=== PATIENT | female | born 1945 | race Caucasian/White ===

== ENCOUNTER → 2017-11-16 11:26 | Outpatient (CLI) | payer MEDICARE, OTHER, SELFPAY ==
[2017-11-16 12:01] LABS: Add Manual Diff / Slide Review NO; Basophils Percent Auto 0.7 % (0-2); Eosinophils Percent Auto 0.8 % (2-4); Hematocrit 34.8 % (36-46); Hemoglobin 11.9 g/dL (12.0-16.0); Lymphocytes Percent Auto 31.2 % (25-40); Mean Corpuscular HGB Conc 34.2 % (30-36); Mean Corpuscular Hemoglobin 29.5 PG (26-34); Mean Corpuscular Volume 86.3 fL (80-100); Monocytes Percent Auto 4.9 % (3-14); Neutrophils Absolute Auto 3900 /uL (3000-5900); Neutrophils Percent Auto 62.4 % (50-75); Platelet Count 223 X10^3/uL (150-400); Red Blood Cell Count 4.03 X10^6/uL (4.0-5.2); Red Cell Distribution Width 13.7 % (11.6-14.8); White Blood Cell Count 6.3 X10^3/uL (4.5-11.0)
[2017-11-16 12:44] LABS: Albumin 4.4 g/dL (3.5-5.0); BUN Creatinine Ratio 22.3 (6-22); Blood Urea Nitrogen 29 mg/dL (7-17); Calcium 10.1 mg/dL (8.4-10.2); Carbon Dioxide 24 mmol/L (22-32); Chloride 103 mmol/L (98-107); Estimated Glomerular Filt Rate 40.4 mL/min (>60); Glucose 92 mg/dL (80-110); HEMOLYSIS < 15 (0-50); Phosphorous 3.3 mg/dL (2.8-4.1); Potassium 4.3 mmol/L (3.4-5.1); Sodium 139 mmol/L (137-145); Uric Acid 7.2 mg/dL (2.5-6.2)
[2017-11-17 16:31] LABS: Complement C3 97 mg/dL (83-193)
[2017-11-19 03:41] LABS: ANA Screen NEGATIVE (Negative); DNA Antibody Crithidia IFA NEGATIVE (Negative); Rheumatoid Factor <14 IU/mL; Sjogren Antiboday SS-A <1.0 NEG AI (<1.0 NEGATIVE); Sjogren Antiboday SS-B <1.0 NEG AI (<1.0 NEGATIVE); Sm Antibody <1.0 NEG AI (<1.0 NEGATIVE); Sm/RNP Antibody <1.0 NEG AI (<1.0 NEGATIVE)
[2017-11-19 14:56] LABS: ANCA Screen with reflex Titer NEGATIVE (Negative)
== END ==
PROVIDERS: PCP Internal Medicine; Visit Provider Internal Medicine Nephrology
DX: N18.9 Chronic kidney disease, unspecified (principal)
CPT/HCPCS: 36415; 80069; 84550; 85025; 86021; 86038; 86160; 86430

== ENCOUNTER → 2018-01-03 09:18 | Outpatient (CLI) | payer MEDICARE, OTHER, SELFPAY ==
[2018-01-03 10:43] LABS: Alanine Aminotransferase 24 IU/L (9-52); Aspartate Aminotransferase 30 IU/L (14-36); Cholesterol 156 mg/dL (140-199); HDL Cholesterol 43 mg/dL (40-60); LDL Cholesterol Calculated 90 mg/dL (<100); Triglycerides 116 mg/dL (35-150)
[2018-01-03 11:10] LABS: TSH w/ Reflex to FT4 0.04 uIU/mL (0.47-4.68)
== END ==
PROVIDERS: PCP Internal Medicine; Visit Provider Internal Medicine
DX: E03.9 Hypothyroidism, unspecified (principal)
CPT/HCPCS: 36415; 80061; 84439; 84443; 84450; 84460

== ENCOUNTER → 2018-02-22 09:13 | Outpatient (CLI) | payer MEDICARE, OTHER, SELFPAY ==
--- NOTE | 2018-02-22 | DI.MG.S_ITS ---
BILATERAL DIGITAL SCREENING MAMMOGRAM 3D/2D WITH CAD: 02/22/2018 CLINICAL: Routine screening. Comparison is made to exams dated: 02/21/2017 mammogram, 02/19/2016 mammogram, and 02/12/2015 mammogram - [facility]. There are scattered fibroglandular elements in both breasts. Current study was also evaluated with a Computer Aided Detection (CAD) system. No significant masses, calcifications, or other findings are seen in either breast. There has been no significant interval change. IMPRESSION: NEGATIVE There is no mammographic evidence of malignancy. A 1 year screening mammogram is recommended.(02/23/2019) This exam was interpreted at Station ID: [id number]. NOTE: For mammograms, a report in lay terms will be sent to the patient. Approximately 15% of breast malignancies will not be visualized mammographically. In the management of a palpable breast mass, a negative mammogram must not discourage biopsy of a clinically suspicious lesion. Electronically Signed By: Brandon meraz/miryam:02/23/2018 05:08:56 letter sent: Normal Exam ACR BI-RADS Category 1: Negative 3341F
== END ==
PROVIDERS: PCP Internal Medicine; Visit Provider Internal Medicine
DX: Z12.31 Encounter for screening mammogram for malignant neoplasm of breast (principal); M81.0 Age-related osteoporosis without current pathological fracture; Z78.0 Asymptomatic menopausal state; E07.9 Disorder of thyroid, unspecified
CPT/HCPCS: 77063; 77067; 77080

== ENCOUNTER → 2018-04-27 08:07 | Outpatient (CLI) | payer MEDICARE, OTHER, SELFPAY | PROVIDERS: PCP Internal Medicine; Visit Provider Internal Medicine Nephrology | DX: R25.2 Cramp and spasm (principal); N18.3 Chronic kidney disease, stage 3 (moderate) ==

== ENCOUNTER → 2018-04-27 08:11 | Outpatient (CLI) | payer MEDICARE, OTHER, SELFPAY ==
[2018-04-27 10:44] LABS: Albumin 4.3 g/dL (3.5-5.0); BUN Creatinine Ratio 18.3 (6-22); Blood Urea Nitrogen 22 mg/dL (7-17); Calcium 9.1 mg/dL (8.4-10.2); Carbon Dioxide 26 mmol/L (22-32); Chloride 105 mmol/L (98-107); Creatine Kinase 110 U/L (30-135); Estimated Glomerular Filt Rate 44.2 mL/min (>60); Glucose 86 mg/dL (80-110); HEMOLYSIS < 15 (0-50); Magnesium 2.3 mg/dL (1.6-2.3); Phosphorous 3.3 mg/dL (2.8-4.1); Sodium 140 mmol/L (137-145)
[2018-04-27 11:13] LABS: Thyroid Stimulating Hormone 2.14 uIU/mL (0.47-4.68)
[2018-04-27 11:22] LABS: Free T4, Direct Thyroxine 1.39 ng/dL (0.78-2.19)
== END ==
PROVIDERS: PCP Internal Medicine; Visit Provider Internal Medicine
DX: E03.9 Hypothyroidism, unspecified (principal); R25.2 Cramp and spasm
CPT/HCPCS: 36415; 80069; 82550; 83735; 84439; 84443

== ENCOUNTER 2018-07-29 11:29 | Emergency (ER) | payer MEDICARE, OTHER, SELFPAY ==
[2018-07-29 11:32] VITALS: BP 142/70; PULSE 74; RESP 12; TEMP 36.5; O2SAT 100
--- NOTE | 2018-07-29 11:38 | ED.ABDPAIN ---
HPI - Abdominal Pain General Chief Complaint: Abdominal Pain Stated Complaint: DIVERTICULITIS Time Seen by Provider: 07/29/18 11:37 Source: patient Mode of arrival: ambulatory Limitations: no limitations History of Present Illness HPI narrative: The patient developed left lower quadrant abdominal pain yesterday evening. She had loose bowel movements last night. She has had no fever or chills. She has no upper abdominal discomfort or emesis. She has no lower GI bleeding. She has a history of diverticulitis, her 1st about 2 years ago. She has undergone routine colonoscopies. She also has renal insufficiency. She has no current hematuria or dysuria. She is drinking fluids and has normal urine output. Related Data Home Medications Medication Instructions Recorded Confirmed CHOLECALCIFEROL (VITAMIN D3) 10,000 units PO #0 12/01/12 02/21/18 (MAXIMUM D3) [COQ 10] #0 06/16/16 02/21/18 ranitidine HCl 75 mg PO BID #0 06/16/16 02/21/18 atorvastatin [Lipitor] 40 mg PO HS #0 05/31/17 02/21/18 clonazepam 2 mg PO #0 05/31/17 02/21/18 levothyroxine [Tirosint] 88 mcg PO #0 05/31/17 02/21/18 Previous Rx's Medication Instructions Recorded amoxicillin-pot clavulanate 1 tab PO BID #14 tab 07/29/18 [Augmentin] Allergies Allergy/AdvReac Type Severity Reaction Status Date / Time cefaclor Allergy Mild RASH Verified 07/29/18 11:35 tetracycline Allergy Mild RASH Verified 07/29/18 11:35 ciprofloxacin [From CIPRO] Allergy Unknown nerve pain Verified 07/29/18 11:35 levofloxacin AdvReac Intermediate NERVE PAIN Verified 07/29/18 11:35 Review of Systems Review of Systems ROS Unobtainable: All systems reviewed & are unremarkable except as noted in HPI and below Constitutional Denies chills, Denies fever(s), Denies headache(s) and Denies weakness ENT Ears, Nose, Mouth, and Throat: Denies headache(s) Cardiovascular Denies chest pain, Denies edema, Denies dyspnea and Denies orthopnea Respiratory Denies cough, Denies dyspnea and Denies wheezing Gastrointestinal Gastrointestinal: Denies abdominal pain, Reports change in bowel habits, Reports diarrhea, Denies nausea and Denies vomiting Genitourinary Denies dysuria Musculoskeletal Denies back pain and Reports numbness Integumentary/Breasts Denies erythema and Denies rash Neurologic Denies headache(s), Reports numbness and Denies weakness Allergic/Immunologic Denies wheezing PFSH Medical History Chronic kidney disease (Acute) Diverticulitis (Acute) Hyperlipidemia (Acute) Surgical History S/P colonoscopy (Acute) Social History Smoking Status: Never smoker Social History Smoking Status: Never smoker Exam Initial Vital Signs Initial Vital Signs: Vital Signs Temperature 97.7 F 07/29/18 11:32 Pulse Rate 74 07/29/18 11:32 Respiratory Rate 12 07/29/18 11:32 Blood Pressure 142/70 H 07/29/18 11:32 Pulse Oximetry 100 07/29/18 11:32 Const General: cooperative and well developed Nutritional Appearance: well nourished Orientation: alert, awake and oriented x3 HENMT Head: normocephalic and atraumatic Mouth: oral mucosae normal and moist mucous membranes Throat: posterior oropharynx normal, tonsils normal and uvula midline Eyes Sclera: sclerae normal (No icterus) Resp Effort & Inspection: normal respiratory effort, able to speak in complete sentences, no respiratory distress and no use of accessory muscles Auscultation: clear to auscultation bilaterally, no rales, no rhonchi and no wheezes Cardio Rate: regular rate Rhythm: regular rhythm Heart Sounds: no click, no gallops, no murmurs and no rubs Pulses: normal peripheral pulses GI Inspection: non-distended Palpation: soft, no hepatosplenomegaly and tender (Mild left lower quadrant tenderness without guarding or rebound.) Auscultation: normal bowel sounds Back/Spine/Pelvis Back: No CVA tenderness Skin General: no rashes or lesions noted and No jaundice Neuro General: alert, oriented x3, gait normal and no focal motor deficits Speech: speech normal Extrem General: no pedal edema Psych Appearance: grossly normal and well kempt Mental Status: mental status grossly normal Attitude: cooperative Thought Content: normal and suicidality Judgment: judgment good Course Orders Ordered: ED Orders 07/29/18 11:46 Basic Metabolic Panel Stat Complete Blood Count AUTO DIFF Stat 07/29/18 12:02 Urine Culture Stat Urine Microscopic Stat Discontinued Medications Amoxicillin/Clavulanate Potassium (Augmentin 875-125 Mg) 1 tab PO NOW ONE Stop: 07/29/18 13:30 Last Admin: 07/29/18 13:37 Dose: 1 tab Vital Signs - 8 hr 07/29/18 11:32 07/29/18 12:36 07/29/18 14:09 Temperature 97.7 F Pulse Rate 74 60 59 L Respiratory Rate 12 16 18 Blood Pressure 142/70 H 123/64 Blood Pressure [Left Arm] 120/59 L Pulse Oximetry 100 100 100 MDM - Abdominal Pain Lab Data Result diagrams: 07/29/18 11:46 07/29/18 11:46 Lab Results 07/29/18 07/29/18 07/29/18 Range/Units 11:46 11:46 12:02 WBC 11.2 H (4.5-11.0) X10^3/uL RBC 4.30 (4.0-5.2) X10^6/uL Hgb 12.6 (12.0-16.0) g/dL Hct 38.0 (36-46) % MCV 88.2 (80-100) fL MCH 29.2 (26-34) PG MCHC 33.1 (30-36) % RDW 14.0 (11.6-14.8) % Plt Count 252 (150-400) X10^3/uL Neut % (Auto) 77.7 H (50-75) % Lymph % (Auto) 17.3 L (25-40) % [place] % (Auto) 4.4 (3-14) % Eos % (Auto) 0.2 L (2-4) % Baso % (Auto) 0.4 (0-2) % Neut # (Auto) 8700 H (8519-3290) /uL Lymph # (Auto) 1900 (1544-6744) /uL [place] # (Auto) 500 (0-900) /uL Eos # (Auto) 0 (0-450) /uL Baso # (Auto) 100 (0-100) /uL Sodium 136 L (137-145) mmol/L Potassium 4.2 (3.4-5.1) mmol/L Chloride 102 (98-107) mmol/L Carbon Dioxide 25 (22-32) mmol/L BUN 21 H (7-17) mg/dL Creatinine 1.30 H (0.52-1.04) mg/dL Estimated GFR 40.3 L (>60) mL/min BUN/Creatinine Ratio 16.2 (6-22) Glucose 98 (80-110) mg/dL Calcium 9.4 (8.4-10.2) mg/dL Urine RBC 5-10/hpf H (0-5/HPF) Urine WBC 1-5/hpf (0-5/HPF) Urine Bacteria None seen (None) Ur Culture Indicated? Specimen cultured Point of care testing: Urine Dip Bedside Urine Glucose Negative Bedside Urine Bilirubin + 1 Bedside Urine Ketone +/- 5 Urine Specific [place] 1.020 Bedside Urine Occult Blood + Bedside Urine pH 5.5 Bedside Urine Urobilinogen +/- 1mg Bedside Urine Nitrite - Negative Bedside Urine Leukocytes +/- 15 Esterase Discharge Plan Departure Patient Disposition: Home Clinical Impression: Abdominal pain Qualifiers: Abdominal location: left lower quadrant Qualified Code(s): R10.32 - Left lower quadrant pain Discharge Date/Time: 07/29/18 14:13 Interventions: ED Discharge Assessment Last Done: 07/29/18 14:09 Instructions: Diverticulitis Activity Restrictions/Additional Instructions: Augmentin 2 times daily as prescribed. Tylenol 2 tablets every 4 hours as needed for pain. Be sure you're drinking plenty of fluids and stay well hydrated. Return the ER for increasing pain or fever. Recheck with your doctor in 2 weeks of doing well. Prescriptions: New amoxicillin-pot clavulanate [Augmentin] 875-125 mg tablet 1 tab PO BID Qty: 14 RF: 0 No Action CHOLECALCIFEROL (VITAMIN D3) (MAXIMUM D3) 10,000 units PO Qty: 0 RF: 0 ranitidine HCl 75 MG tablet 75 mg PO BID Qty: 0 RF: 0 [COQ 10] Qty: 0 RF: 0 levothyroxine [Tirosint] 88 MCG capsule 88 mcg PO Qty: 0 RF: 0 atorvastatin [Lipitor] 20 MG tablet 40 mg PO HS Qty: 0 RF: 0 clonazepam 2 MG tablet 2 mg PO Qty: 0 RF: 0 Referrals: Hellen Kohler MD [Primary Care Provider] -
[2018-07-29 11:54] LABS: Add Manual Diff / Slide Review NO; Basophils Absolute Auto 100 /uL (0-100); Basophils Percent Auto 0.4 % (0-2); Eosinophils Absolute Auto 0 /uL (0-450); Eosinophils Percent Auto 0.2 % (2-4); Hemoglobin 12.6 g/dL (12.0-16.0); Lymphocytes Absolute Auto 1900 /uL (1100-4500); Lymphocytes Percent Auto 17.3 % (25-40); Mean Corpuscular HGB Conc 33.1 % (30-36); Mean Corpuscular Hemoglobin 29.2 PG (26-34); Mean Corpuscular Volume 88.2 fL (80-100); Monocytes Absolute Auto 500 /uL (0-900); Monocytes Percent Auto 4.4 % (3-14); Neutrophils Absolute Auto 8700 /uL (1500-7000); Neutrophils Percent Auto 77.7 % (50-75); Platelet Count 252 X10^3/uL (150-400); White Blood Cell Count 11.2 X10^3/uL (4.5-11.0)
[2018-07-29 12:05] LABS: BUN Creatinine Ratio 16.2 (6-22); Blood Urea Nitrogen 21 mg/dL (7-17); Calcium 9.4 mg/dL (8.4-10.2); Carbon Dioxide 25 mmol/L (22-32); Chloride 102 mmol/L (98-107); Estimated Glomerular Filt Rate 40.3 mL/min (>60); Glucose 98 mg/dL (80-110); HEMOLYSIS < 15 (0-50); Potassium 4.2 mmol/L (3.4-5.1); Sodium 136 mmol/L (137-145)
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
[2018-07-29 12:36] VITALS: BP 120/59; PULSE 60; RESP 16; O2SAT 100
[2018-07-29 12:52] LABS: Bacteria Urine None Seen; RBC Urine 5-10/HPF (0-5/HPF); WBC Urine 1-5/HPF (0-5/HPF)
[2018-07-29 12:53] LABS: Culture Indicated Urine Specimen Cultured
[2018-07-29] MEDS: AMOXICILLIN/CLAV 875/125 MG 1 TAB PO (13:37)
--- NOTE | 2018-07-29 14:00 | ED_ITS ---
HPI - Abdominal Pain General Chief Complaint: Abdominal Pain Stated Complaint: DIVERTICULITIS Time Seen by Provider: 07/29/18 11:37 Source: patient Mode of arrival: ambulatory Limitations: no limitations History of Present Illness HPI narrative: The patient presents with left lower quadrant abdominal pain. Pain started last night. She has had loose bowel movements without bloody diarrhea. She has had no emesis. She denies fever or chills. She denies dysuria. She has no back pain. She has a history of diverticulitis. Her last episode of diverticulitis was about 2 years ago. Pains are similar, not yet as severe as she has experienced in the past. She is concerned she has diverticulitis once again. She does not have LLQ tenderness on a daily basis. Related Data Home Medications Medication Instructions Recorded Confirmed CHOLECALCIFEROL (VITAMIN D3) 10,000 units PO #0 12/01/12 02/21/18 (MAXIMUM D3) [COQ 10] #0 06/16/16 02/21/18 ranitidine HCl 75 mg PO BID #0 06/16/16 02/21/18 atorvastatin [Lipitor] 40 mg PO HS #0 05/31/17 02/21/18 clonazepam 2 mg PO #0 05/31/17 02/21/18 levothyroxine [Tirosint] 88 mcg PO #0 05/31/17 02/21/18 Previous Rx's Medication Instructions Recorded amoxicillin-pot clavulanate 1 tab PO BID #14 tab 07/29/18 [Augmentin] Allergies Allergy/AdvReac Type Severity Reaction Status Date / Time cefaclor Allergy Mild RASH Verified 07/29/18 11:35 tetracycline Allergy Mild RASH Verified 07/29/18 11:35 ciprofloxacin [From CIPRO] Allergy Unknown nerve pain Verified 07/29/18 11:35 levofloxacin AdvReac Intermediate NERVE PAIN Verified 07/29/18 11:35 Review of Systems Review of Systems ROS Unobtainable: All systems reviewed & are unremarkable except as noted in HPI and below Constitutional Denies headache(s) and Denies weakness Eyes Reports other (No eye complaints) ENT Ears, Nose, Mouth, and Throat: Denies headache(s) and Denies sore throat Cardiovascular Denies chest pain, Denies irregular heart rhythm, Denies lightheadedness, Denies palpitations, Denies dyspnea and Denies orthopnea Respiratory Denies cough and Denies dyspnea Gastrointestinal Gastrointestinal: Reports abdominal pain (Left lower quadrant abdominal pain), Denies change in bowel habits, Denies diarrhea, Denies nausea and Denies vom iting Genitourinary Denies dysuria Musculoskeletal Denies back pain and Reports numbness Integumentary/Breasts Denies pruritus, Denies erythema, Denies rash and Denies wounds Neurologic Denies headache(s), Reports numbness and Denies weakness Endocrine Denies palpitations Hematologic/Lymphatic Denies easy bleeding and Denies easy bruising PFSH Medical History Chronic kidney disease (Acute) Diverticulitis (Acute) Hyperlipidemia (Acute) Surgical History S/P colonoscopy (Acute) Social History Smoking Status: Never smoker Social History Smoking Status: Never smoker Exam Initial Vital Signs Initial Vital Signs: Vital Signs Temperature 97.7 F 07/29/18 11:32 Pulse Rate 74 07/29/18 11:32 Respiratory Rate 12 07/29/18 11:32 Blood Pressure 142/70 H 07/29/18 11:32 Pulse Oximetry 100 07/29/18 11:32 Const General: cooperative and well developed Nutritional Appearance: well nourished Orientation: alert, awake, oriented x3 and not confused Eyes Sclera: sclerae normal (No icterus) Chest Chest: normal inspection of the chest Resp Effort & Inspection: normal respiratory effort and able to speak in complete sentences Auscultation: clear to auscultation bilaterally, no rales, no rhonchi and no wheezes Cardio Rate: regular rate Rhythm: regular rhythm Heart Sounds: no click, no gallops, no murmurs and no rubs Pulses: normal peripheral pulses GI Inspection: non-distended Palpation: soft, no hepatosplenomegaly, No pulsatile mass and tender (LLQ tenderness without distention, guarding or rebound) Auscultation: normal bowel sounds Back/Spine/Pelvis Back: No CVA tenderness Skin General: no rashes or lesions noted, No jaundice and No petechiae Neuro General: alert, oriented x3, gait normal and no focal motor deficits Course Course Narrative: The patient truly has normal bowel habits, and no lower abdominal tenderness. She has no urinary complaints. Current symptoms are suggestive of prior bouts of diverticulitis. She has allergies to Cipro and Levaquin. She will be discharged on Augmentin. Orders Ordered: ED Orders 07/29/18 11:46 Basic Metabolic Panel Stat Complete Blood Count AUTO DIFF Stat 07/29/18 12:02 Urine Culture Stat Urine Microscopic Stat Discontinued Medications Amoxicillin/Clavulanate Potassium (Augmentin 875-125 Mg) 1 tab PO NOW ONE Stop: 07/29/18 13:30 Last Admin: 07/29/18 13:37 Dose: 1 tab Vital Signs - 8 hr 07/29/18 11:32 07/29/18 12:36 Temperature 97.7 F Pulse Rate 74 60 Respiratory Rate 12 16 Blood Pressure 142/70 H Blood Pressure [Left Arm] 120/59 L Pulse Oximetry 100 100 MDM - Abdominal Pain Lab Data Result diagrams: 07/29/18 11:46 07/29/18 11:46 Lab Results 07/29/18 07/29/18 07/29/18 Range/Units 11:46 11:46 12:02 WBC 11.2 H (4.5-11.0) X10^3/uL RBC 4.30 (4.0-5.2) X10^6/uL Hgb 12.6 (12.0-16.0) g/dL Hct 38.0 (36-46) % MCV 88.2 (80-100) fL MCH 29.2 (26-34) PG MCHC 33.1 (30-36) % RDW 14.0 (11.6-14.8) % Plt Count 252 (150-400) X10^3/uL Neut % (Auto) 77.7 H (50-75) % Lymph % (Auto) 17.3 L (25-40) % [place] % (Auto) 4.4 (3-14) % Eos % (Auto) 0.2 L (2-4) % Baso % (Auto) 0.4 (0-2) % Neut # (Auto) 8700 H (5422-4742) /uL Lymph # (Auto) 1900 (1550-2078) /uL [place] # (Auto) 500 (0-900) /uL Eos # (Auto) 0 (0-450) /uL Baso # (Auto) 100 (0-100) /uL Sodium 136 L (137-145) mmol/L Potassium 4.2 (3.4-5.1) mmol/L Chloride 102 (98-107) mmol/L Carbon Dioxide 25 (22-32) mmol/L BUN 21 H (7-17) mg/dL Creatinine 1.30 H (0.52-1.04) mg/dL Estimated GFR 40.3 L (>60) mL/min BUN/Creatinine Ratio 16.2 (6-22) Glucose 98 (80-110) mg/dL Calcium 9.4 (8.4-10.2) mg/dL Urine RBC 5-10/hpf H (0-5/HPF) Urine WBC 1-5/hpf (0-5/HPF) Urine Bacteria None seen (None) Ur Culture Indicated? Specimen cultured Point of care testing: Urine Dip Bedside Urine Glucose Negative Bedside Urine Bilirubin + 1 Bedside Urine Ketone +/- 5 Urine Specific [place] 1.020 Bedside Urine Occult Blood + Bedside Urine pH 5.5 Bedside Urine Urobilinogen +/- 1mg Bedside Urine Nitrite - Negative Bedside Urine Leukocytes +/- 15 Esterase Discharge Plan Departure Patient Disposition: Home Clinical Impression: Abdominal pain Qualifiers: Abdominal location: left lower quadrant Qualified Code(s): R10.32 - Left lower quadrant pain Instructions: Diverticulitis Activity Restrictions/Additional Instructions: Augmentin 2 times daily as prescribed. Tylenol 2 tablets every 4 hours as needed for pain. Be sure you're drinking plenty of fluids and stay well hydrated. Return the ER for increasing pain or fever. Recheck with your doctor in 2 weeks of doing well. Prescriptions: New amoxicillin-pot clavulanate [Augmentin] 875-125 mg tablet 1 tab PO BID Qty: 14 RF: 0 No Action CHOLECALCIFEROL (VITAMIN D3) (MAXIMUM D3) 10,000 units PO Qty: 0 RF: 0 ranitidine HCl 75 MG tablet 75 mg PO BID Qty: 0 RF: 0 [COQ 10] Qty: 0 RF: 0 levothyroxine [Tirosint] 88 MCG capsule 88 mcg PO Qty: 0 RF: 0 atorvastatin [Lipitor] 20 MG tablet 40 mg PO HS Qty: 0 RF: 0 clonazepam 2 MG tablet 2 mg PO Qty: 0 RF: 0 Referrals: Hellen Kohler MD [Primary Care Provider] -
[2018-07-29 14:09] VITALS: BP 123/64; PULSE 59; RESP 18; O2SAT 100
== END 2018-07-29 14:13 | disposition home or self-care (01) ==
PROVIDERS: Emergency Provider Emergency Medicine; PCP Internal Medicine
DX: R10.32 Left lower quadrant pain (principal)
CPT/HCPCS: 36591; 80048; 81003; 81015; 85025; 87086; 99282; 99283

== ENCOUNTER → 2018-09-27 11:36 | Outpatient (CLI) | payer MEDICARE, OTHER, SELFPAY ==
[2018-09-27 13:41] LABS: Clostridium Difficile Tox PCR Negative for C. diff
== END ==
PROVIDERS: PCP Internal Medicine; Visit Provider Internal Medicine
DX: R19.7 Diarrhea, unspecified (principal)
CPT/HCPCS: 87493

== ENCOUNTER → 2018-09-28 08:13 | Outpatient (CLI) | payer MEDICARE, OTHER, SELFPAY ==
[2018-09-28 09:49] LABS: Alanine Aminotransferase 18 IU/L (9-52); Aspartate Aminotransferase 25 IU/L (14-36); Cholesterol 176 mg/dL (140-199); HDL Cholesterol 51 mg/dL (40-60); LDL Cholesterol Calculated 105 mg/dL (<100); Triglycerides 100 mg/dL (35-150)
[2018-09-28 09:55] LABS: HEMOLYSIS < 15 (0-50); Iron 67 ug/dL (37-170)
[2018-09-28 10:06] LABS: Percent Iron Saturation 23 % (15-50); Total Iron Binding Capacity 297 ug/dL (265-497); Transferrin 228 mg/dL (206-381)
[2018-09-28 10:24] LABS: Ferritin 53.9 ng/mL (11.1-264)
[2018-09-28 10:55] LABS: Folate 9.1 ng/mL (2.76-20.0); Vitamin B12 830 pg/mL (239-931)
== END ==
PROVIDERS: PCP Internal Medicine; Visit Provider Internal Medicine
DX: E78.00 Pure hypercholesterolemia, unspecified (principal); D64.9 Anemia, unspecified
CPT/HCPCS: 36415; 80061; 82607; 82728; 82746; 83540; 83550; 84450; 84460

== ENCOUNTER → 2018-11-28 08:10 | Outpatient (CLI) | payer MEDICARE, OTHER, SELFPAY ==
[2018-11-28 08:23] LABS: Bacteria Urine None Seen
[2018-11-28 09:11] LABS: Hematocrit 35.4 % (36-46)
[2018-11-28 09:19] LABS: Appearance Urine UA CLEAR; Bilirubin Urine UA NEGATIVE (NEGATIVE); Color Urine UA YELLOW; Glucose Urine UA NEGATIVE (Negative); Ketones Urine UA NEGATIVE (NEGATIVE); Leukocyte Esterase Urine UA NEGATIVE (NEGATIVE); Nitrite Urine UA NEGATIVE (Negative); Occult Blood Urine UA TRACE-INTACT (Negative); Protein Urine UA NEGATIVE (Negative); Specific Gravity Urine UA 1.015 (1.000-1.035); Urobilinogen Urine UA 0.2 E.U./dL (0.2); pH Urine UA 5.5 (4.5-8.0)
[2018-11-28 09:38] LABS: Amorphous Sediment Urine 1+; Culture Indicated Urine Cult Not Indicated; RBC Urine 1-5/HPF (0-5/HPF); WBC Urine 0-1/HPF (0-5/HPF)
[2018-11-28 09:45] LABS: BUN Creatinine Ratio 15.8 (6-22); Blood Urea Nitrogen 19 mg/dL (7-17); Calcium 10.1 mg/dL (8.4-10.2); Carbon Dioxide 29 mmol/L (22-32); Chloride 106 mmol/L (98-107); Estimated Glomerular Filt Rate 44.2 mL/min (>60); Glucose 86 mg/dL (80-110); HEMOLYSIS < 15 (0-50); Phosphorous 3.6 mg/dL (2.8-4.1); Potassium 4.5 mmol/L (3.4-5.1); Sodium 140 mmol/L (137-145)
[2018-11-28 10:16] LABS: Microalbumi Creatinin Ratio Ur 5.7 ug/mg CR (<30); Microalbumin Urine Random < 0.6 mg/dL (0-1.6)
[2018-12-02 17:15] LABS: Parathyroid Hormone Int 43 pg/mL (14-64)
== END ==
PROVIDERS: PCP Internal Medicine; Visit Provider Internal Medicine Nephrology
DX: R25.2 Cramp and spasm (principal); N18.3 Chronic kidney disease, stage 3 (moderate); M81.0 Age-related osteoporosis without current pathological fracture
CPT/HCPCS: 36415; 80069; 81001; 82043; 82523; 82570; 83970; 85014

== ENCOUNTER → 2019-02-20 10:46 | Outpatient (CLI) | payer MEDICARE, OTHER, SELFPAY ==
--- NOTE | 2019-02-20 | DI.RAD.S_ITS ---
PROCEDURE: XR CERVICAL SPINE 2V OR 3V INDICATIONS: Dorsalgia, unspecified TECHNIQUE: 4 view(s) of the cervical spine were acquired. COMPARISON: [facility], , C-SPINE COMPLETE W FLEX/EXTEN, 05/21/2009, 11:17. FINDINGS: Bones: No fractures or dislocations to the C7 level. Odontoid view is suboptimal. No suspicious bony lesions. There is moderate degenerative disc disease at C5-C6 and C6-C7. Moderate to severe facet arthropathy at C3-C4, C4-C5 and C5-C6, left worse than right. Soft tissues: No prevertebral soft tissue swelling. IMPRESSION: Degenerative disc and facet disease. Dictated by: Lala Alford M.D. on 02/20/2019 at 14:42 Approved by: Lala Alford M.D. on 02/20/2019 at 14:46
--- NOTE | 2019-02-20 | DI.RAD.S_ITS ---
PROCEDURE: XR THORACIC SPINE 3V INDICATIONS: Dorsalgia, unspecified TECHNIQUE: The views of the thoracic spine were acquired. COMPARISON: [facility], BING, L-SPINE 2-3 VIEWS, 03/17/2017, 10:40. [facility], BING, XR CERVICAL SPINE 2V OR 3V, 02/20/2019, 10:57. FINDINGS: Bones: Mild scoliosis. No fractures or dislocations. No suspicious bony lesions. There is mild to moderate degenerative disc disease in thoracic spine. Moderate to severe degenerative changes noted in the visualized upper lumbar spine. 12 pairs of ribs are noted, and appear intact where visualized. Soft tissues: No paravertebral stripe thickening. IMPRESSION: 1. Scoliosis and mild degenerative disc disease in thoracic spine. 2. Moderate to severe degenerative changes in the visualized upper lumbar spine. Dictated by: Lala Alford M.D. on 02/20/2019 at 17:50 Approved by: Lala Alford M.D. on 02/20/2019 at 17:54
== END ==
PROVIDERS: PCP Internal Medicine; Visit Provider Internal Medicine
DX: M54.9 Dorsalgia, unspecified (principal); M50.322 Other cervical disc degeneration at C5-C6 level; M51.34 Other intervertebral disc degeneration, thoracic region; M47.812 Spondylosis without myelopathy or radiculopathy, cervical region; M47.816 Spondylosis without myelopathy or radiculopathy, lumbar region; M41.9 Scoliosis, unspecified
CPT/HCPCS: 72040; 72072

== ENCOUNTER → 2019-02-22 10:38 | Outpatient (CLI) | payer MEDICARE, OTHER, SELFPAY ==
--- NOTE | 2019-02-22 | DI.MG.S_ITS ---
BILATERAL DIGITAL SCREENING MAMMOGRAM 3D/2D WITH CAD: 02/22/2019 CLINICAL: Routine screening. Comparison is made to exams dated: 02/22/2018 mammogram, 02/21/2017 mammogram, and 02/19/2016 mammogram - [facility]. There are scattered fibroglandular elements in both breasts. Current study was also evaluated with a Computer Aided Detection (CAD) system. No significant masses, calcifications, or other findings are seen in either breast. There has been no significant interval change. IMPRESSION: NEGATIVE There is no mammographic evidence of malignancy. A 1 year screening mammogram is recommended. This exam was interpreted at Station ID: [id number]. NOTE: For mammograms, a report in lay terms will be sent to the patient. Approximately 15% of breast malignancies will not be visualized mammographically. In the management of a palpable breast mass, a negative mammogram must not discourage biopsy of a clinically suspicious lesion. Electronically Signed By: Dilcia draper/miryam:02/22/2019 12:29:06 letter sent: Normal Exam ACR BI-RADS Category 1: Negative 3341F
== END ==
PROVIDERS: PCP Internal Medicine; Visit Provider Internal Medicine
DX: Z12.31 Encounter for screening mammogram for malignant neoplasm of breast (principal)
CPT/HCPCS: 77063; 77067

== ENCOUNTER → 2019-03-13 09:43 | Outpatient (CLI) | payer MEDICARE, OTHER, SELFPAY ==
[2019-03-13 11:00] LABS: Alanine Aminotransferase 24 IU/L (9-52); Aspartate Aminotransferase 27 IU/L (14-36); Cholesterol 151 mg/dL (140-199); HDL Cholesterol 58 mg/dL (40-60); LDL Cholesterol Calculated 72 mg/dL (<100); Triglycerides 106 mg/dL (35-150)
[2019-03-13 11:29] LABS: TSH w/ Reflex to FT4 3.82 uIU/mL (0.47-4.68)
[2019-03-15 16:18] LABS: BUN Creatinine Ratio 17.5 (6-22); Blood Urea Nitrogen 21 mg/dL (7-17); Calcium 10.3 mg/dL (8.4-10.2); Carbon Dioxide 24 mmol/L (22-32); Chloride 105 mmol/L (98-107); Estimated Glomerular Filt Rate 44.2 mL/min (>60); Glucose 89 mg/dL (80-110); HEMOLYSIS < 15 (0-50); Sodium 140 mmol/L (137-145)
== END ==
PROVIDERS: Family Provider Internal Medicine Nephrology; PCP Internal Medicine; Visit Provider Internal Medicine
DX: E78.00 Pure hypercholesterolemia, unspecified (principal); E03.9 Hypothyroidism, unspecified
CPT/HCPCS: 36415; 80048; 80061; 84443; 84450; 84460

== ENCOUNTER → 2019-10-31 08:06 | Outpatient (CLI) | payer MEDICARE, OTHER, SELFPAY ==
[2019-10-31 08:37] LABS: Bacteria Urine None Seen; WBC Urine None Seen (0-5/HPF)
[2019-10-31 09:24] LABS: Add Manual Diff / Slide Review NO; Basophils Absolute Auto 0 /uL (0-100); Basophils Percent Auto 0.6 % (0-2); Eosinophils Absolute Auto 100 /uL (0-450); Eosinophils Percent Auto 1.2 % (2-4); Hematocrit 34.1 % (36-46); Hemoglobin 11.9 g/dL (12.0-16.0); Lymphocytes Absolute Auto 2200 /uL (1100-4500); Lymphocytes Percent Auto 37.6 % (25-40); Mean Corpuscular HGB Conc 34.8 % (30-36); Mean Corpuscular Hemoglobin 30.8 PG (26-34); Mean Corpuscular Volume 88.5 fL (80-100); Monocytes Absolute Auto 300 /uL (0-900); Monocytes Percent Auto 5.1 % (3-14); Neutrophils Absolute Auto 3200 /uL (1500-7000); Neutrophils Percent Auto 55.5 % (50-75); Platelet Count 234 X10^3/uL (150-400); Red Blood Cell Count 3.85 X10^6/uL (4.0-5.2); Red Cell Distribution Width 13.7 % (11.6-14.8); White Blood Cell Count 5.8 X10^3/uL (4.5-11.0)
[2019-10-31 09:25] LABS: Appearance Urine UA CLEAR; Bilirubin Urine UA NEGATIVE (NEGATIVE); Color Urine UA YELLOW; Glucose Urine UA NEGATIVE (Negative); Ketones Urine UA NEGATIVE (NEGATIVE); Leukocyte Esterase Urine UA NEGATIVE (NEGATIVE); Nitrite Urine UA NEGATIVE (Negative); Occult Blood Urine UA TRACE-INTACT (Negative); Protein Urine UA NEGATIVE (Negative); Urobilinogen Urine UA 0.2 E.U./dL (0.2)
[2019-10-31 09:35] LABS: pH Urine UA 5.5 (4.5-8.0)
[2019-10-31 09:36] LABS: Culture Indicated Urine Cult Not Indicated; RBC Urine 0-1/HPF (0-5/HPF); Squamous Epithelial Cell Urine 0-1 /HPF (0-5/HPF)
[2019-10-31 10:16] LABS: Alanine Aminotransferase 21 IU/L (<35); Albumin 4.4 g/dL (3.5-5.0); Albumin Globulin Ratio 1.4 (1.0-2.8); Alkaline Phosphatase 50 U/L (38-126); Aspartate Aminotransferase 31 IU/L (14-36); BUN Creatinine Ratio 18.8 (6-22); Bilirubin Total 0.3 mg/dL (0.2-1.3); Blood Urea Nitrogen 22 mg/dL (7-17); Calcium 9.7 mg/dL (8.4-10.2); Carbon Dioxide 27 mmol/L (22-32); Chloride 105 mmol/L (98-107); Estimated Glomerular Filt Rate 45.3 mL/min (>60); Globulin 3.1 g/dL (1.7-4.1); Glucose 96 mg/dL (80-110); HEMOLYSIS < 15 (0-50); Potassium 4.2 mmol/L (3.4-5.1); Sodium 139 mmol/L (137-145); Total Protein 7.5 g/dL (6.3-8.2)
[2019-10-31 10:17] LABS: Creatinine Urine Random 85.6 mg/dL; Protein (Total) Urine Random 9 mg/dL (0-12)
[2019-10-31 10:32] LABS: Vitamin D 25 Hydroxy (D3) 53.1 ng/mL (30.0-100.0)
[2019-10-31 10:43] LABS: Thyroid Stimulating Hormone 3.51 uIU/mL (0.47-4.68)
[2019-11-01 16:14] LABS: Parathyroid Hormone Int 42 pg/mL (15-65)
== END ==
PROVIDERS: Family Provider Internal Medicine Nephrology; PCP Internal Medicine; Referring Provider Internal Medicine Nephrology; Visit Provider Internal Medicine Nephrology
DX: E55.9 Vitamin D deficiency, unspecified (principal); E07.9 Disorder of thyroid, unspecified; N18.3 Chronic kidney disease, stage 3 (moderate)
CPT/HCPCS: 36415; 80053; 81001; 82306; 82570; 83970; 84156; 84443; 85025

== ENCOUNTER → 2019-10-31 08:18 | Outpatient (CLI) | payer MEDICARE, OTHER, SELFPAY ==
--- NOTE | 2019-10-31 | DI.RAD.S_ITS ---
PROCEDURE: XR HAND LT MIN 3V INDICATIONS: Primary osteoarthritis of rt and left hand TECHNIQUE: 3 views of the hand(s) acquired. COMPARISON: None. FINDINGS: Bones: No fractures or dislocations. Carpal bones are normally aligned. No suspicious bony lesions. Moderate to severe first CMC joint osteoarthritis. Mild first and fifth DIP joint osteoarthritis. Soft tissues: No suspicious soft tissue calcifications. IMPRESSION: Moderate to severe first CMC joint osteophytes. Mild first and fifth DIP joint osteoarthritis. Dictated by: Odette Vázquez MD, PhD on 10/31/2019 at 10:00 Approved by: Odette Vázquez MD, PhD on 10/31/2019 at 10:01
--- NOTE | 2019-10-31 | DI.RAD.S_ITS ---
PROCEDURE: XR HAND RT MIN 3V INDICATIONS: Primary osteoarthritis of rt and left hand TECHNIQUE: 3 views of the hand(s) acquired. COMPARISON: None. FINDINGS: Bones: No fractures or dislocations. Carpal bones are normally aligned. No suspicious bony lesions. Moderate first CMC joint and fifth DIP joint osteoarthritis. Mild first DIP joint osteoarthritis. Soft tissues: No suspicious soft tissue calcifications. IMPRESSION: 1. Moderate first CMC and fifth DIP joint osteoarthritis. 2. Mild first DIP joint osteoarthritis. Dictated by: Odette Vázquez MD, PhD on 10/31/2019 at 10:01 Approved by: Odette Vázquez MD, PhD on 10/31/2019 at 10:02
== END ==
LOC: LAB 08:19 → RAD 08:20
PROVIDERS: Family Provider Internal Medicine Nephrology; PCP Internal Medicine; Referring Provider Physician Assistant; Visit Provider Physician Assistant
DX: M19.042 Primary osteoarthritis, left hand (principal); M19.041 Primary osteoarthritis, right hand; M18.0 Bilateral primary osteoarthritis of first carpometacarpal joints
CPT/HCPCS: 73130

== ENCOUNTER → 2020-02-27 15:13 | Outpatient (CLI) | payer MEDICARE, OTHER, SELFPAY ==
--- NOTE | 2020-02-27 15:15 | DI.MG.S_ITS ---
BILATERAL DIGITAL SCREENING MAMMOGRAM 3D/2D WITH CAD: 02/27/2020 CLINICAL: Routine screening. Comparison is made to exams dated: 02/22/2019 mammogram, 02/22/2018 mammogram, and 02/21/2017 mammogram - . There are scattered fibroglandular elements in both breasts. Current study was also evaluated with a Computer Aided Detection (CAD) system. No significant masses, calcifications, or other findings are seen in either breast. There has been no significant interval change. IMPRESSION: NEGATIVE There is no mammographic evidence of malignancy. A 1 year screening mammogram is recommended. This exam was interpreted at Station ID: [id number]. NOTE: For mammograms, a report in lay terms will be sent to the patient. Approximately 15% of breast malignancies will not be visualized mammographically. In the management of a palpable breast mass, a negative mammogram must not discourage biopsy of a clinically suspicious lesion. Electronically Signed By: Manuel Andrade M.D., jr/miryam:02/27/2020 15:42:46 letter sent: Normal Exam ACR BI-RADS Category 1: Negative 3341F
== END ==
PROVIDERS: Family Provider Internal Medicine Nephrology; PCP Internal Medicine; Referring Provider Internal Medicine; Visit Provider Internal Medicine
DX: Z12.31 Encounter for screening mammogram for malignant neoplasm of breast (principal); M81.0 Age-related osteoporosis without current pathological fracture; Z78.0 Asymptomatic menopausal state; E07.9 Disorder of thyroid, unspecified; N28.9 Disorder of kidney and ureter, unspecified; Z82.62 Family history of osteoporosis
CPT/HCPCS: 77063; 77067; 77080

== ENCOUNTER → 2020-03-20 13:39 | Outpatient (ROUT) | payer MEDICARE, OTHER, SELFPAY ==
[2020-03-20 14:06] LABS: Alanine Aminotransferase 20 IU/L (<35); Albumin 4.4 g/dL (3.5-5.0); Albumin Globulin Ratio 1.6 (1.0-2.8); Alkaline Phosphatase 56 U/L (38-126); Aspartate Aminotransferase 29 IU/L (14-36); BUN Creatinine Ratio 23.2 (6-22); Bilirubin Total 0.4 mg/dL (0.2-1.3); Blood Urea Nitrogen 29 mg/dL (7-17); Calcium 9.8 mg/dL (8.4-10.2); Carbon Dioxide 28 mmol/L (22-32); Chloride 106 mmol/L (98-107); Cholesterol 150 mg/dL (140-199); Globulin 2.8 g/dL (1.7-4.1); Glucose 103 mg/dL (80-110); HDL Cholesterol 55 mg/dL (40-60); HEMOLYSIS < 15 (0-50); LDL Cholesterol Calculated 73 mg/dL (<100); Potassium 4.3 mmol/L (3.4-5.1); Sodium 140 mmol/L (137-145); Total Protein 7.2 g/dL (6.3-8.2); Triglycerides 109 mg/dL (35-150)
== END ==
PROVIDERS: Family Provider Internal Medicine Nephrology; PCP Internal Medicine; Visit Provider Internal Medicine
DX: N18.9 Chronic kidney disease, unspecified (principal); E78.5 Hyperlipidemia, unspecified; E03.9 Hypothyroidism, unspecified
CPT/HCPCS: 80053; 80061; 84443

== ENCOUNTER → 2020-06-02 20:33 | Outpatient (ROUT) | payer MEDICARE, OTHER, SELFPAY ==
[2020-06-06 15:34] LABS: Bacteria Urine None Seen
[2020-06-06 16:07] LABS: Appearance Urine UA CLOUDY; Bilirubin Urine UA NEGATIVE (NEGATIVE); Color Urine UA ORANGE; Glucose Urine UA TRACE g/dL (Negative); Ketones Urine UA NEGATIVE (NEGATIVE); Leukocyte Esterase Urine UA 3+ (NEGATIVE); Nitrite Urine UA POSITIVE (Negative); Occult Blood Urine UA 3+ (Negative); Protein Urine UA 3+ (Negative); Specific Gravity Urine UA 1.015 (1.000-1.035)
[2020-06-06 16:21] LABS: RBC Urine 5-10/HPF (0-5/HPF); WBC Urine 10-30/HPF (0-5/HPF)
== END ==
PROVIDERS: Family Provider Internal Medicine Nephrology; PCP Internal Medicine; Visit Provider Internal Medicine
DX: R35.0 Frequency of micturition (principal)
CPT/HCPCS: 81001; 87077; 87086; 87186

== ENCOUNTER 2020-06-21 06:51 | Emergency (ER) | payer MEDICARE, OTHER, SELFPAY ==
[2020-06-21 07:04] VITALS: BP 149/66; PULSE 97; RESP 17; TEMP 36.6; O2SAT 98; BMI 19.9
--- NOTE | 2020-06-21 07:19 | ED.GENADULT ---
HPI - General Adult General Chief complaint: Ear Stated complaint: left ear pain Time Seen by Provider: 06/21/20 07:01 Source: patient Mode of arrival: Ambulatory Limitations: no limitations History of Present Illness HPI narrative: Patient is a 75-year-old female here for evaluation of left ear pain. She does wear bilateral hearing aids. She states that last evening when she took her left hearing aid out she felt a ?twinge? in her left ear. She did take some Tylenol this took her symptoms completely away. She states the Tylenol wears out this twinge returns. She does think that it is around the outside of her ear and you no fevers. Sinus congestion. No sore throat. Related Data Home Medications Medication Instructions Recorded Confirmed CHOLECALCIFEROL (VITAMIN D3) 10,000 units PO #0 12/01/12 02/21/18 (MAXIMUM D3) [COQ 10] #0 06/16/16 02/21/18 ranitidine HCl 75 mg PO BID #0 06/16/16 02/21/18 atorvastatin [Lipitor] 40 mg PO HS #0 05/31/17 02/21/18 clonazepam 2 mg PO #0 05/31/17 02/21/18 levothyroxine [Tirosint] 88 mcg PO #0 05/31/17 02/21/18 Previous Rx's Medication Instructions Recorded amoxicillin-pot clavulanate 1 tab PO BID #14 tab 07/29/18 [Augmentin] Allergies Allergy/AdvReac Type Severity Reaction Status Date / Time cefaclor Allergy Mild RASH Verified 07/29/18 11:35 tetracycline Allergy Mild RASH Verified 07/29/18 11:35 ciprofloxacin [From CIPRO] Allergy Unknown nerve pain Verified 07/29/18 11:35 levofloxacin AdvReac Intermediate NERVE PAIN Verified 07/29/18 11:35 Review of Systems Constitutional Constitutional: Denies fever(s) ENT Ears, Nose, Mouth, and Throat: Denies sore throat Comments: Left ear pain Cardiovascular Cardiovascular: Denies dyspnea Respiratory Respiratory: Denies cough and Denies dyspnea Integumentary/Breasts Skin/Breast: Denies rash Neurologic Neurologic: Denies behavioral changes Psychiatric Psychiatric: Denies behavioral changes Patient History Medical History Chronic kidney disease Diverticulitis Hyperlipidemia Surgical History (Updated 07/29/18 @ 11:48 by Lalo Zuniga MD) S/P colonoscopy Social History Smoking Status: Never smoker Smoking Status: Never smoker alcohol intake frequency: 0-2 drinks per day Substance Use Type: does not use Exam Initial Vital Signs Initial Vital Signs: Vital Signs Temperature 97.8 F 06/21/20 07:04 Pulse Rate 97 H 06/21/20 07:04 Respiratory Rate 17 06/21/20 07:04 Blood Pressure 149/66 H 06/21/20 07:04 Pulse Oximetry 98 06/21/20 07:04 HENMT Head: normal to inspection and normocephalic Ears: external ears normal, TM's normal bilaterally, EAC's normal and mastoids normal Nose: external nose normal Face and sinus: normal facial exam Skin Lesions: no lesions Rashes: no rashes Neuro General: patient alert, patient awake and patient oriented x3 Extrem General: capillary refill normal Course Vital Signs Vital signs: Vital Signs - 8 hr 06/21/20 07:04 Temperature 97.8 F Pulse Rate 97 H Respiratory Rate 17 Blood Pressure 149/66 H Pulse Oximetry 98 Medical Decision Making [facility] Narrative Medical decision making narrative: Patient's your exam today is relatively unremarkable. She does have some slight redness in the left external auditory canal however I probably would not have even thought anything of it if she had not mentioned that her left ear was hurting. No indication for antibiotics. She is going to leave her left hearing aid out for the next couple days. She was given return precautions and follow-up instructions. She expressed understanding and agreement. Discharge Plan Departure Patient Disposition: Home Clinical Impression: Acute pain of left ear Instructions: DI for Ear Pain-Adult Activity Restrictions/Additional Instructions: There was no indication for any infection today on your exam however I do recommend that you leave your left ear hearing aid out for the next couple days. I do recommend you contact your primary provider for further evaluation if her symptoms persist or worsen. Prescriptions: No Action CHOLECALCIFEROL (VITAMIN D3) (MAXIMUM D3) 10,000 units PO Qty: 0 RF: 0 ranitidine HCl 75 MG tablet 75 mg PO BID Qty: 0 RF: 0 [COQ 10] Qty: 0 RF: 0 levothyroxine [Tirosint] 88 MCG capsule 88 mcg PO Qty: 0 RF: 0 atorvastatin [Lipitor] 20 MG tablet 40 mg PO HS Qty: 0 RF: 0 clonazepam 2 MG tablet 2 mg PO Qty: 0 RF: 0 amoxicillin-pot clavulanate [Augmentin] 875-125 mg tablet 1 tab PO BID Qty: 14 RF: 0 Referrals: Hellen Kohler MD [Primary Care Provider] -
== END 2020-06-21 07:23 | disposition home or self-care (01) ==
PROVIDERS: Emergency Provider Emergency Medicine; Family Provider Internal Medicine Nephrology; PCP Internal Medicine
DX: H92.02 Otalgia, left ear (principal); E78.5 Hyperlipidemia, unspecified; N18.9 Chronic kidney disease, unspecified
CPT/HCPCS: 99281

== ENCOUNTER → 2020-09-12 13:54 | Outpatient (CLI) | payer MEDICARE, OTHER, SELFPAY ==
[2020-09-12 14:35] LABS: Alanine Aminotransferase 17 IU/L (<35); Albumin 4.2 g/dL (3.5-5.0); Albumin Globulin Ratio 1.5 (1.0-2.8); Alkaline Phosphatase 46 U/L (38-126); Aspartate Aminotransferase 29 IU/L (14-36); BUN Creatinine Ratio 13.1 (6-22); Bilirubin Total 0.3 mg/dL (0.2-1.3); Blood Urea Nitrogen 17 mg/dL (7-17); Calcium 9.9 mg/dL (8.4-10.2); Carbon Dioxide 26 mmol/L (22-32); Chloride 104 mmol/L (98-107); Globulin 2.8 g/dL (1.7-4.1); Glucose 100 mg/dL (80-110); HEMOLYSIS < 15 (0-50); Potassium 3.8 mmol/L (3.4-5.1); Sodium 138 mmol/L (137-145)
== END ==
PROVIDERS: Family Provider Internal Medicine Nephrology; PCP Internal Medicine; Referring Provider Internal Medicine; Visit Provider Internal Medicine
DX: R25.2 Cramp and spasm (principal)
CPT/HCPCS: 36415; 80053

== ENCOUNTER → 2021-01-15 09:00 | Outpatient (CLI) | payer MEDICARE, OTHER, SELFPAY ==
[2021-01-15 09:30] LABS: Appearance Urine UA CLOUDY; Bilirubin Urine UA NEGATIVE (NEGATIVE); Color Urine UA YELLOW; Glucose Urine UA NEGATIVE (Negative); Ketones Urine UA NEGATIVE (NEGATIVE); Leukocyte Esterase Urine UA 3+ (NEGATIVE); Nitrite Urine UA NEGATIVE (Negative); Occult Blood Urine UA 2+ (Negative); Protein Urine UA NEGATIVE (Negative); Specific Gravity Urine UA <=1.005 (1.000-1.035); Urobilinogen Urine UA 0.2 E.U./dL (0.2)
[2021-01-15 09:40] LABS: Bacteria Urine Many (>30); Culture Indicated Urine Specimen Cultured; RBC Urine 5-10/HPF (0-5/HPF); WBC Urine >100/HPF (0-5/HPF)
[2021-01-15 10:07] LABS: Add Manual Diff / Slide Review NO; Basophils Absolute Auto 0 /uL (0-100); Basophils Percent Auto 0.4 % (0-2); Eosinophils Absolute Auto 100 /uL (0-450); Eosinophils Percent Auto 0.7 % (2-4); Hematocrit 34.1 % (36-46); Hemoglobin 11.4 g/dL (12.0-16.0); Lymphocytes Absolute Auto 2000 /uL (1100-4500); Mean Corpuscular HGB Conc 33.5 % (30-36); Mean Corpuscular Hemoglobin 29.7 PG (26-34); Mean Corpuscular Volume 88.5 fL (80-100); Monocytes Absolute Auto 300 /uL (0-900); Monocytes Percent Auto 3.8 % (3-14); Neutrophils Absolute Auto 6000 /uL (1500-7000); Neutrophils Percent Auto 71.1 % (50-75); Platelet Count 254 X10^3/uL (150-400); Red Blood Cell Count 3.85 X10^6/uL (4.0-5.2); Red Cell Distribution Width 13.8 % (11.6-14.8); White Blood Cell Count 8.5 X10^3/uL (4.5-11.0)
[2021-01-15 10:26] LABS: Alanine Aminotransferase 20 IU/L (<35); Albumin 4.2 g/dL (3.5-5.0); Albumin Globulin Ratio 1.8 (1.0-2.8); Alkaline Phosphatase 47 U/L (38-126); Aspartate Aminotransferase 29 IU/L (14-36); BUN Creatinine Ratio 11.5 (6-22); Bilirubin Total 0.5 mg/dL (0.2-1.3); Blood Urea Nitrogen 12 mg/dL (7-17); Calcium 9.7 mg/dL (8.4-10.2); Carbon Dioxide 26 mmol/L (22-32); Chloride 104 mmol/L (98-107); Estimated Glomerular Filt Rate 51.8 mL/min (>60); Globulin 2.4 g/dL (1.7-4.1); Glucose 90 mg/dL (80-110); HEMOLYSIS < 15 (0-50); Potassium 4.4 mmol/L (3.4-5.1); Sodium 136 mmol/L (137-145); Total Protein 6.6 g/dL (6.3-8.2)
[2021-01-15 10:28] LABS: Creatinine Urine Random 103.4 mg/dL; Protein (Total) Urine Random 20 mg/dL (0-12); Protein Creatinine Ratio Urine 0.19 GRAM/24H
[2021-01-15 10:41] LABS: Vitamin D 25 Hydroxy (D3) 53.7 ng/mL (30.0-100.0)
[2021-01-15 10:55] LABS: Thyroid Stimulating Hormone 4.79 uIU/mL (0.47-4.68)
[2021-01-16 08:09] LABS: Parathyroid Hormone Int 61 pg/mL (15-65)
== END ==
PROVIDERS: Family Provider Internal Medicine Nephrology; PCP Internal Medicine; Referring Provider Internal Medicine Nephrology; Visit Provider Internal Medicine Nephrology
DX: E55.9 Vitamin D deficiency, unspecified (principal); R25.2 Cramp and spasm; N18.32 Chronic kidney disease, stage 3b
CPT/HCPCS: 36415; 80053; 81001; 82306; 82570; 83970; 84156; 84443; 85025; 87077; 87086; 87186

== ENCOUNTER 2021-01-23 14:42 | Emergency (ER) | payer MEDICARE, OTHER, SELFPAY ==
[2021-01-23 15:04] VITALS: BP 149/70; PULSE 72; RESP 16; TEMP 36.9; O2SAT 100; BMI 19.7
[2021-01-23 16:10] LABS: Add Manual Diff / Slide Review NO; Basophils Absolute Auto 0 /uL (0-100); Basophils Percent Auto 0.6 % (0-2); Eosinophils Absolute Auto 100 /uL (0-450); Eosinophils Percent Auto 0.9 % (2-4); Hematocrit 32.5 % (36-46); Lymphocytes Absolute Auto 1400 /uL (1100-4500); Lymphocytes Percent Auto 23.3 % (25-40); Mean Corpuscular Hemoglobin 30.1 PG (26-34); Mean Corpuscular Volume 88.6 fL (80-100); Monocytes Absolute Auto 300 /uL (0-900); Monocytes Percent Auto 4.9 % (3-14); Neutrophils Absolute Auto 4100 /uL (1500-7000); Neutrophils Percent Auto 70.3 % (50-75); Platelet Count 223 X10^3/uL (150-400); Red Blood Cell Count 3.66 X10^6/uL (4.0-5.2); Red Cell Distribution Width 13.7 % (11.6-14.8); White Blood Cell Count 5.9 X10^3/uL (4.5-11.0)
[2021-01-23 16:20] LABS: Bacteria Urine None Seen; WBC Urine None Seen (0-5/HPF)
[2021-01-23 16:25] LABS: Alanine Aminotransferase 19 IU/L (<35); Albumin 4.2 g/dL (3.5-5.0); Albumin Globulin Ratio 1.6 (1.0-2.8); Alkaline Phosphatase 43 U/L (38-126); Aspartate Aminotransferase 28 IU/L (14-36); BUN Creatinine Ratio 18.6 (6-22); Bilirubin Total 0.2 mg/dL (0.2-1.3); Blood Urea Nitrogen 22 mg/dL (7-17); Calcium 9.9 mg/dL (8.4-10.2); Carbon Dioxide 27 mmol/L (22-32); Chloride 105 mmol/L (98-107); Estimated Glomerular Filt Rate 44.8 mL/min (>60); Globulin 2.7 g/dL (1.7-4.1); Glucose 113 mg/dL (80-110); HEMOLYSIS < 15 (0-50); Lipase 146 U/L (23-300); Potassium 3.9 mmol/L (3.4-5.1); Sodium 138 mmol/L (137-145); Total Protein 6.9 g/dL (6.3-8.2)
[2021-01-23 16:34] LABS: Mucus Urine 1+ (Negative); RBC Urine 1-5/HPF (0-5/HPF)
[2021-01-23 16:35] LABS: Culture Indicated Urine Cult Not Indicated
--- NOTE | 2021-01-23 16:45 | ED_ITS ---
HPI - Abdominal Pain General Chief Complaint: Abdominal Pain Stated Complaint: Upper Left Abd Pain Time Seen by Provider: 01/23/21 16:45 Source: patient Mode of arrival: Ambulatory Limitations: no limitations History of Present Illness HPI narrative: This is a 75-year-old female come with complaint of left-sided abdominal pain. Patient states she was recently diagnosed with diverticulitis 2 and half weeks ago based on clinical symptoms. She has had for 5 prior episodes. They decided to try her on citrulline but no antibiotics. This was per her hearing aid consultant. She had improvement. Then she developed some urinary symptoms positive urinalysis and was started on Macrobid for 5 days which she completed 2 days ago. Approximately 4-5 days ago she developed left- sided abdominal discomfort in the upper mid abdomen with no flank pain. No fevers. No chills. No chest pain or shortness of breath. No nausea or vomiting. No big changes to bowel movements. No hematochezia or melena. No dysuria, urgency or frequency. No vaginal bleeding or discharge. Patient states that she can feel it is localized midway between the lateral belly and umbilicus. Related Data Home Medications Medication Instructions Recorded Confirmed CHOLECALCIFEROL (VITAMIN D3) 10,000 units PO #0 12/01/12 02/21/18 (MAXIMUM D3) [COQ 10] #0 06/16/16 02/21/18 ranitidine HCl 75 mg tablet 75 mg PO BID #0 06/16/16 02/21/18 atorvastatin 20 mg tablet (Lipitor) 40 mg PO HS #0 05/31/17 02/21/18 clonazepam 2 mg tablet 2 mg PO #0 05/31/17 02/21/18 levothyroxine 88 mcg capsule 88 mcg PO #0 05/31/17 02/21/18 (Tirosint) Previous Rx's Medication Instructions Recorded amoxicillin 875 mg-potassium 1 tab PO BID #14 tab 07/29/18 clavulanate 125 mg tablet (Augmentin) Allergies Allergy/AdvReac Type Severity Reaction Status Date / Time cefaclor Allergy Mild RASH Verified 07/29/18 11:35 tetracycline Allergy Mild RASH Verified 07/29/18 11:35 ciprofloxacin [From CIPRO] Allergy Unknown nerve pain Verified 07/29/18 11:35 levofloxacin AdvReac Intermediate NERVE PAIN Verified 07/29/18 11:35 Review of Systems Review of Systems ROS Unobtainable: All systems reviewed & are unremarkable except as noted in HPI and below Patient History Medical History Chronic kidney disease Diverticulitis Hyperlipidemia Surgical History (Updated 07/29/18 @ 11:48 by Lalo Zuniga MD) S/P colonoscopy Social History Smoking Status: Never smoker Smoking Status: Never smoker alcohol intake frequency: 0-2 drinks per day Substance Use Type: does not use Exam Narrative Exam Narrative: GENERAL: Alert and oriented x three, mild distress. HEENT: Head normocephalic, atraumatic, EOMI, pupils reactive, face symmetric, moist mucous membranes NECK: Supple, full range of motion CARDIOVASCULAR: Regular rate and rhythm without murmurs, rubs or gallops. RESPIRATORY: Breath sounds equal bilaterally, no wheezes rales or rhonchi. ABDOMEN: Soft, nontender. Normoactive bowel sounds all 4 quadrants. No guarding or rebound, rigidity, no mass : No CVA tenderness EXTREMITIES: Normal range of motion, no clubbing or edema. Neurovascularly intact NEUROLOGICAL: Cranial nerves II through XII grossly intact. Moving all extremities SKIN: Warm, dry, no petechiae, no rashes or lesions. Initial Vital Signs Initial Vital Signs: Vital Signs Temperature 98.4 F 01/23/21 15:04 Pulse Rate 72 01/23/21 15:04 Respiratory Rate 16 01/23/21 15:04 Blood Pressure 149/70 H 01/23/21 15:04 Pulse Oximetry 100 01/23/21 15:04 Course Orders Ordered: ED Orders 01/23/21 15:13 EKG-12 Lead Stat 01/23/21 16:01 Complete Blood Count AUTO DIFF Stat Comprehensive Metabolic Panel Stat Lipase Stat 01/23/21 16:19 Urine Microscopic Stat 01/23/21 17:30 CT kidney ureter bladder (KUB) Stat Vital Signs Vital signs: Vital Signs - 8 hr 01/23/21 15:04 01/23/21 18:51 Temperature 98.4 F Pulse Rate 72 58 L Respiratory Rate 16 18 Blood Pressure 149/70 H 135/68 Pulse Oximetry 100 100 MDM - Abdominal Pain Lab Data Result diagrams: 01/23/21 16:01 01/23/21 16:01 Labs: Lab Results 01/23/21 01/23/21 01/23/21 Range/Units 16:01 16:01 16:19 WBC 5.9 (4.5-11.0) X10^3/uL RBC 3.66 L (4.0-5.2) X10^6/uL Hgb 11.0 L (12.0-16.0) g/dL Hct 32.5 L (36-46) % MCV 88.6 (80-100) fL MCH 30.1 (26-34) PG MCHC 34.0 (30-36) % RDW 13.7 (11.6-14.8) % Plt Count 223 (150-400) X10^3/uL Neut % (Auto) 70.3 (50-75) % Lymph % (Auto) 23.3 L (25-40) % [place] % (Auto) 4.9 (3-14) % Eos % (Auto) 0.9 L (2-4) % Baso % (Auto) 0.6 (0-2) % Neut # (Auto) 4100 (0118-5952) /uL Lymph # (Auto) 1400 (4529-2181) /uL [place] # (Auto) 300 (0-900) /uL Eos # (Auto) 100 (0-450) /uL Baso # (Auto) 0 (0-100) /uL Sodium 138 (137-145) mmol/L Potassium 3.9 (3.4-5.1) mmol/L Chloride 105 (98-107) mmol/L Carbon Dioxide 27 (22-32) mmol/L BUN 22 H (7-17) mg/dL Creatinine 1.18 H (0.52-1.04) mg/dL Estimated GFR 44.8 L (>60) mL/min BUN/Creatinine Ratio 18.6 (6-22) Glucose 113 H (80-110) mg/dL Calcium 9.9 (8.4-10.2) mg/dL Total Bilirubin 0.2 (0.2-1.3) mg/dL AST 28 (14-36) IU/L ALT 19 (<35) IU/L Alkaline Phosphatase 43 (38-126) U/L Total Protein 6.9 (6.3-8.2) g/dL Albumin 4.2 (3.5-5.0) g/dL Globulin 2.7 (1.7-4.1) g/dL Albumin/Globulin Ratio 1.6 (1.0-2.8) Lipase 146 (23-300) U/L Urine RBC 1-5/hpf (0-5/HPF) Urine WBC None seen (0-5/HPF) Urine Bacteria None seen (None) Urine Mucus 1+ H (Negative) Ur Culture Indicated? Cult not indicated Point of care testing: Urine Dip Bedside Urine Glucose Negative Bedside Urine Bilirubin - Negative Bedside Urine Ketone - Negative Urine Specific [place] 1.025 Bedside Urine Occult Blood + Bedside Urine pH 6.0 Bedside Urine Protein - Negative Bedside Urine Urobilinogen - Negative Bedside Urine Nitrite - Negative Bedside Urine Leukocytes - Negative Esterase Imaging Data CT scan - abdomen/pelvis: Radiologist's Impression: [address] [id number] Scan ReportSigned Patient: Capri Villalobos#: [id number]: 6Acct:[id number]/Sex: 75 / FDate of Service: 01/23/21Loc: EDAccession Number: [id number] Procedure: CT kidney ureter bladder (KUB) Ordering Provider: Jackie Mena D.O. PROCEDURE: CT KIDNEY URETER BLADDER (KUB) INDICATIONS: left lower abd pain, hx ckd, diverticulitis, recent uti TECHNIQUE: Axial sections were acquired from the lung bases to the pubic symphysis. Coronal and sagittal reformats were performed. For radiation dose reduction, the following was used: automated exposure control, adjustment of mA and/or kV according to patient size. COMPARISON:[facility], CT, ABDOMEN/PELVIS WITH CONTRAST, 06/16/2016, 14:42. FINDINGS: Image quality: Excellent. Lung bases: Unremarkable. Heart: No significant findings. URINARY: Right Kidney: No stones or hydronephrosis. Right Ureter: No hydroureter. Left Kidney: No stones or hydronephrosis. Left Ureter: No hydroureter. Bladder: Normal wall thickness. No stones. ABDOMEN: Liver: Unremarkable. Gallbladder: 7 millimeter stone in the fundus of the gallbladder. Biliary ducts: Unremarkable. Pancreas: Unremarkable. Spleen: Unremarkable. Adrenal Glands: Unremarkable. Stomach and Bowel: Stomach, small bowel loops, and colon are unremarkable. Numerous diverticuli noted in the colon without evidence of diverticulitis. Moderate amount of stool noted throughout the colon. Duodenal diverticulum. Peritoneum: No abnormal intraperitoneal fluid. No free air. Ventral Wall: No hernia. Abdominal Nodes: No enlarged retroperitoneal or mesenteric lymph nodes. Vessels: Aorta and inferior vena cava are normal in size. PELVIS: Pelvic Organs: Unremarkable. Pelvic Nodes: Unremarkable. Miscellaneous: No inguinal hernias are seen. Bones: Spine degenerative disc disease and facet arthropathy. Convex left thoracolumbar spine scoliosis. IMPRESSION: 1. No renal stone or hydronephrosis. 2. Cholelithiasis. 3. Colonic diverticulosis without evidence of diverticulitis. 4. No free fluid or free air. 5. No dilated loops of bowel. 6. Moderate fecal loading throughout the colon. Please correlate with clinical data to exclude constipation. Dictated by: Odette Vázquez MD, PhD on 01/23/2021 at 18:02 Approved by: Odette Vázquez MD, PhD on 01/23/2021 at 18:08 Discharge Plan Departure Patient Disposition: Home Clinical Impression: Abdominal pain Instructions: DI for Abdominal Pain-Adult Activity Restrictions/Additional Instructions: Follow-up with your physician for recheck. Your labs including your urine or negative today. Urine culture was sent in typically takes 48 hours to result and if positive you would be called to start a new antibiotic. You should also have your urine re-checked and there is blood in your urine. If this does not resolve even after you have finished your antibiotics you should have cystoscopy with a urologist. Labs and imaging otherwise do not show any major abnormalities. You do have a b aseline anemia which has not changed with a hemoglobin of 11. Your renal function also shows a creatinine of 1.18 which appears to be similar to priors over the last year. Please return for fevers, new or worsening abdominal pain, lightheadedness or passing out, back or flank pain, persistent vomiting, black or bloody stools or other new or concerning symptoms. Prescriptions: No Action CHOLECALCIFEROL (VITAMIN D3) (MAXIMUM D3) 10,000 units PO Qty: 0 RF: 0 ranitidine HCl 75 MG tablet 75 mg PO BID Qty: 0 RF: 0 [COQ 10] Qty: 0 RF: 0 levothyroxine [Tirosint] 88 MCG capsule 88 mcg PO Qty: 0 RF: 0 atorvastatin [Lipitor] 20 MG tablet 40 mg PO HS Qty: 0 RF: 0 clonazepam 2 MG tablet 2 mg PO Qty: 0 RF: 0 amoxicillin-pot clavulanate [Augmentin] 875-125 mg tablet 1 tab PO BID Qty: 14 RF: 0 Referrals: Sixto Hidalgo MD [Physician] - Hellen Kohler MD [Primary Care Provider] -
--- NOTE | 2021-01-23 17:30 | DI.CT.S_ITS ---
PROCEDURE: CT KIDNEY URETER BLADDER (KUB) INDICATIONS: left lower abd pain, hx ckd, diverticulitis, recent uti TECHNIQUE: Axial sections were acquired from the lung bases to the pubic symphysis. Coronal and sagittal reformats were performed. For radiation dose reduction, the following was used: automated exposure control, adjustment of mA and/or kV according to patient size. COMPARISON:[facility], CT, ABDOMEN/PELVIS WITH CONTRAST, 06/16/2016, 14:42. FINDINGS: Image quality: Excellent. Lung bases: Unremarkable. Heart: No significant findings. URINARY: Right Kidney: No stones or hydronephrosis. Right Ureter: No hydroureter. Left Kidney: No stones or hydronephrosis. Left Ureter: No hydroureter. Bladder: Normal wall thickness. No stones. ABDOMEN: Liver: Unremarkable. Gallbladder: 7 millimeter stone in the fundus of the gallbladder. Biliary ducts: Unremarkable. Pancreas: Unremarkable. Spleen: Unremarkable. Adrenal Glands: Unremarkable. Stomach and Bowel: Stomach, small bowel loops, and colon are unremarkable. Numerous diverticuli noted in the colon without evidence of diverticulitis. Moderate amount of stool noted throughout the colon. Duodenal diverticulum. Peritoneum: No abnormal intraperitoneal fluid. No free air. Ventral Wall: No hernia. Abdominal Nodes: No enlarged retroperitoneal or mesenteric lymph nodes. Vessels: Aorta and inferior vena cava are normal in size. PELVIS: Pelvic Organs: Unremarkable. Pelvic Nodes: Unremarkable. Miscellaneous: No inguinal hernias are seen. Bones: Spine degenerative disc disease and facet arthropathy. Convex left thoracolumbar spine scoliosis. IMPRESSION: 1. No renal stone or hydronephrosis. 2. Cholelithiasis. 3. Colonic diverticulosis without evidence of diverticulitis. 4. No free fluid or free air. 5. No dilated loops of bowel. 6. Moderate fecal loading throughout the colon. Please correlate with clinical data to exclude constipation. Dictated by: Odette Vázquez MD, PhD on 01/23/2021 at 18:02 Approved by: Odette Vázquez MD, PhD on 01/23/2021 at 18:08
[2021-01-23 18:51] VITALS: BP 135/68; PULSE 58; RESP 18; O2SAT 100
== END 2021-01-23 18:51 | disposition home or self-care (01) ==
PROVIDERS: Emergency Provider Emergency Medicine; Family Provider Internal Medicine Nephrology; PCP Internal Medicine
DX: R10.12 Left upper quadrant pain (principal); Z87.19 Personal history of other diseases of the digestive system
CPT/HCPCS: 36415; 74176; 80053; 81003; 81015; 83690; 85025; 93005; 93010; 99283; 99284

== ENCOUNTER → 2021-09-30 15:46 | Outpatient (CLI) | payer MEDICARE, OTHER, SELFPAY ==
--- NOTE | 2021-09-30 15:49 | DI.MG.S_ITS ---
BILATERAL DIGITAL SCREENING MAMMOGRAM 3D/2D WITH CAD: 09/30/2021 CLINICAL: Routine screening. Family history of breast cancer. Comparison is made to exams dated: 02/27/2020 mammogram, 02/22/2019 mammogram, 02/22/2018 mammogram, and 02/21/2017 mammogram - [facility]. There are scattered fibroglandular elements in both breasts. Current study was also evaluated with a Computer Aided Detection (CAD) system. No significant masses, calcifications, or other findings are seen in either breast. There has been no significant interval change. IMPRESSION: NEGATIVE There is no mammographic evidence of malignancy. A 1 year screening mammogram is recommended. This exam was interpreted at Station ID: [id number]. NOTE: For mammograms, a report in lay terms will be sent to the patient. Approximately 15% of breast malignancies will not be visualized mammographically. In the management of a palpable breast mass, a negative mammogram must not discourage biopsy of a clinically suspicious lesion. Electronically Signed By: Pablito coker/miryam:09/30/2021 16:49:12 letter sent: Normal Exam ACR BI-RADS Category 1: Negative [id number]
== END ==
PROVIDERS: Family Provider Internal Medicine Nephrology; PCP Internal Medicine; Referring Provider Internal Medicine; Visit Provider Internal Medicine
DX: Z12.31 Encounter for screening mammogram for malignant neoplasm of breast (principal); Z80.3 Family history of malignant neoplasm of breast
CPT/HCPCS: 77063; 77067

== ENCOUNTER → 2022-03-11 08:12 | Outpatient (CLI) | payer MEDICARE, OTHER, SELFPAY ==
[2022-03-11 09:45] LABS: Add Manual Diff / Slide Review NO; Basophils Absolute Auto 0 /uL (0-100); Basophils Percent Auto 0.5 % (0-2); Eosinophils Absolute Auto 300 /uL (0-450); Eosinophils Percent Auto 5.3 % (2-4); Hematocrit 32.5 % (36-46); Hemoglobin 11.1 g/dL (12.0-16.0); Lymphocytes Absolute Auto 1900 /uL (1100-4500); Lymphocytes Percent Auto 36.8 % (25-40); Mean Corpuscular HGB Conc 34.3 % (30-36); Mean Corpuscular Hemoglobin 30.1 PG (26-34); Mean Corpuscular Volume 87.8 fL (80-100); Monocytes Absolute Auto 400 /uL (0-900); Monocytes Percent Auto 6.8 % (3-14); Neutrophils Absolute Auto 2700 /uL (1500-7000); Neutrophils Percent Auto 50.6 % (50-75); Platelet Count 251 X10^3/uL (150-400); White Blood Cell Count 5.3 X10^3/uL (4.5-11.0)
[2022-03-11 11:05] LABS: Appearance Urine UA CLEAR; Bilirubin Urine UA NEGATIVE (NEGATIVE); Color Urine UA YELLOW; Glucose Urine UA NEGATIVE (Negative); Ketones Urine UA NEGATIVE (NEGATIVE); Leukocyte Esterase Urine UA NEGATIVE (NEGATIVE); Nitrite Urine UA NEGATIVE (Negative); Occult Blood Urine UA 1+ (Negative); Protein Urine UA NEGATIVE (Negative); Urobilinogen Urine UA 0.2 E.U./dL (0.2)
[2022-03-11 11:07] LABS: Albumin 4.1 g/dL (3.5-5.0); BUN Creatinine Ratio 12.2 (6-22); Blood Urea Nitrogen 14 mg/dL (7-17); Calcium 9.1 mg/dL (8.4-10.2); Carbon Dioxide 24 mmol/L (22-32); Chloride 106 mmol/L (98-107); Estimated Glomerular Filt Rate 50 mL/min (>60); Glucose 90 mg/dL (80-110); HEMOLYSIS < 15 (0-50); Magnesium 2.3 mg/dL (1.6-2.3); Phosphorous 3.4 mg/dL (2.8-4.1); Potassium 4.2 mmol/L (3.4-5.1); Sodium 138 mmol/L (137-145)
[2022-03-11 11:19] LABS: RBC Urine 0-1/HPF (0-5/HPF); Squamous Epithelial Cell Urine 0-1 /HPF (0-5/HPF); WBC Urine None Seen (0-5/HPF)
[2022-03-11 11:20] LABS: Amorphous Sediment Urine 1+; Bacteria Urine None Seen; Culture Indicated Urine Cult Not Indicated
[2022-03-11 11:24] LABS: Vitamin D 25 Hydroxy (D3) 46.6 ng/mL (30.0-100.0)
[2022-03-12 07:59] LABS: Parathyroid Hormone Int 90 pg/mL (15-65)
== END ==
PROVIDERS: Family Provider Internal Medicine Nephrology; PCP Internal Medicine; Referring Provider Internal Medicine Nephrology; Visit Provider Internal Medicine Nephrology
DX: R25.2 Cramp and spasm (principal); E55.9 Vitamin D deficiency, unspecified; N18.32 Chronic kidney disease, stage 3b
CPT/HCPCS: 36415; 80069; 81001; 82306; 83735; 83970; 85025

== ENCOUNTER → 2022-03-19 | Outpatient (CLI) | payer MEDICARE, OTHER, SELFPAY | LOC: RAD 14:04 | PROVIDERS: Family Provider Internal Medicine Nephrology; PCP Internal Medicine; Referring Provider Internal Medicine; Visit Provider Internal Medicine | DX: M81.0 Age-related osteoporosis without current pathological fracture (principal); Z13.820 Encounter for screening for osteoporosis; Z78.0 Asymptomatic menopausal state | CPT/HCPCS: 77080 ==

== ENCOUNTER → 2023-02-05 09:12 | Outpatient (CLI) | payer MEDICARE, OTHER, SELFPAY ==
[2023-02-12 15:36] LABS: C-Telopeptide, Serum 151 pg/mL (.)
== END ==
PROVIDERS: Family Provider Internal Medicine Nephrology; PCP Internal Medicine
DX: M81.0 Age-related osteoporosis without current pathological fracture (principal)
CPT/HCPCS: 36415; 82523

== ENCOUNTER 2023-03-07 16:22 | Emergency (ER) | payer MEDICARE, OTHER, SELFPAY ==
[2023-03-07 16:30] VITALS: BP 162/72; PULSE 72; RESP 16; TEMP 36.7; O2SAT 99; BMI 20.5
[2023-03-07 17:27] VITALS: O2SAT 99
[2023-03-07 17:28] VITALS: BP 167/74; PULSE 78; O2SAT 99
[2023-03-07 17:30] VITALS: PULSE 78; O2SAT 100
[2023-03-07 17:51] LABS: Add Manual Diff / Slide Review NO; Basophils Absolute Auto 100 /uL (0-100); Eosinophils Absolute Auto 0 /uL (0-450); Eosinophils Percent Auto 0.5 % (2-4); Hematocrit 34.4 % (36-46); Hemoglobin 11.7 g/dL (12.0-16.0); Lymphocytes Absolute Auto 1600 /uL (1100-4500); Lymphocytes Percent Auto 16.7 % (25-40); Mean Corpuscular HGB Conc 34.1 % (30-36); Mean Corpuscular Hemoglobin 30.1 PG (26-34); Mean Corpuscular Volume 88.3 fL (80-100); Monocytes Absolute Auto 600 /uL (0-900); Monocytes Percent Auto 5.7 % (3-14); Neutrophils Absolute Auto 7500 /uL (1500-7000); Neutrophils Percent Auto 76.1 % (50-75); Platelet Count 226 X10^3/uL (150-400); Red Cell Distribution Width 13.9 % (11.6-14.8); White Blood Cell Count 9.8 X10^3/uL (4.5-11.0)
[2023-03-07 17:57] LABS: Alanine Aminotransferase 18 IU/L (<35); Albumin 4.4 g/dL (3.5-5.0); Albumin Globulin Ratio 1.4 (1.0-2.8); Alkaline Phosphatase 47 U/L (38-126); Aspartate Aminotransferase 28 IU/L (14-36); BUN Creatinine Ratio 23.9 (6-22); Bilirubin Total 0.6 mg/dL (0.2-1.3); Blood Urea Nitrogen 28 mg/dL (7-17); Calcium 10.1 mg/dL (8.4-10.2); Carbon Dioxide 24 mmol/L (22-32); Chloride 104 mmol/L (98-107); Estimated Glomerular Filt Rate 48 mL/min (>60); Globulin 3.2 g/dL (1.7-4.1); Glucose 97 mg/dL (80-110); HEMOLYSIS 31 (0-50); Lipase 139 U/L (23-300); Potassium 4.2 mmol/L (3.4-5.1); Sodium 138 mmol/L (137-145); Total Protein 7.6 g/dL (6.3-8.2)
[2023-03-07 18:08] LABS: Bacteria Urine None Seen; Culture Indicated Urine Cult Not Indicated; RBC Urine None Seen (0-5/HPF); Squamous Epithelial Cell Urine None Seen (0-5/HPF); WBC Urine None Seen (0-5/HPF)
--- NOTE | 2023-03-07 18:34 | ED_ITS ---
HPI - Abdominal Pain General Chief Complaint: Abdominal Pain Stated Complaint: Lower ABD pain, Poss Diverticulitis Time Seen by Provider: 03/07/23 17:28 Source: patient Mode of arrival: Ambulatory Limitations: no limitations History of Present Illness HPI narrative: This is a 77-year-old female with history of memory loss, dyslipidemia, hypothyroidism and GERD who presents with complaint of left lower quadrant pain and several days of diarrhea. Patient states she thought she might have a UTI versus diverticulitis. She is had a sense of urgency but no dysuria, no hematuria. She is not had any flank or back pain. She denies fevers or chills. No nausea or vomiting. No chest pain or shortness of breath. She endorses left lower quadrant pain the abdomen which he states feels similar to diverticulitis. No black or bloody stools noted. She does note she recently had her rivastigmine doubled dosage in the last week. Patient states this for short term memory loss. Patient states she is had a prior thyroidectomy, tonsillectomy and bilateral ovaries removed. States several drug allergies including Cipro, cefaclor, tetracycline and Levaquin. Patient denies any tobacco, alcohol or illicit. Her primary care is Dr. Kohler. Related Data Home Medications Medication Instructions Recorded Confirmed CHOLECALCIFEROL (VITAMIN D3) 10,000 units PO ##0 12/01/12 02/21/18 (MAXIMUM D3) [COQ 10] ##0 06/16/16 02/21/18 ranitidine HCl 75 mg tablet 75 mg PO BID ##0 06/16/16 02/21/18 atorvastatin 20 mg tablet (Lipitor) 40 mg PO HS ##0 05/31/17 02/21/18 clonazepam 2 mg tablet 2 mg PO ##0 05/31/17 02/21/18 levothyroxine 88 mcg capsule 88 mcg PO ##0 05/31/17 02/21/18 (Tirosint) Previous Rx's Medication Instructions Recorded amoxicillin 875 mg-potassium 1 tab PO BID #14 tabs 07/29/18 clavulanate 125 mg tablet (Augmentin) amoxicillin 875 mg-potassium 1 tab PO BID #20 tabs 03/07/23 clavulanate 125 mg tablet Allergies Allergy/AdvReac Type Severity Reaction Status Date / Time cefaclor Allergy Mild RASH Verified 03/07/23 16:30 tetracycline Allergy Mild RASH Verified 03/07/23 16:30 ciprofloxacin [From CIPRO] Allergy Unknown nerve pain Verified 03/07/23 16:30 levofloxacin AdvReac Intermediate NERVE PAIN Verified 03/07/23 16:30 Review of Systems Review of Systems ROS Unobtainable: All systems reviewed & are unremarkable except as noted in HPI and below Patient History Medical History Hyperlipidemia Diverticulitis Chronic kidney disease Surgical History S/P colonoscopy Social History Smoking Status: Never smoker Smoking Status: Never smoker alcohol intake frequency: 0-2 drinks per day Substance Use Type: does not use Exam Narrative Exam Narrative: GENERAL: Alert and oriented x three, thin elderly female in mild distress. HEENT: Head normocephalic, atraumatic, EOMI, pupils reactive, face symmetric, moist mucous membranes NECK: Supple, full range of motion CARDIOVASCULAR: Regular rate and rhythm without murmurs, rubs or gallops. RESPIRATORY: Breath sounds equal bilaterally, no wheezes rales or rhonchi. ABDOMEN: Soft, positive for left lower quadrant tenderness. Nondistended. Normoactive bowel sounds all 4 quadrants. No guarding or rebound, rigidity, no mass, no rash, erythema or other skin changes noted. : No CVA tenderness EXTREMITIES: Normal range of motion, no clubbing or edema. Neurovascularly intact NEUROLOGICAL: Cranial nerves II through XII grossly intact. Moving all extremities SKIN: Warm, dry, no petechiae, no rashes or lesions. Initial Vital Signs Initial Vital Signs: Vital Signs Temperature 98.1 F 03/07/23 16:30 Pulse Rate 72 03/07/23 16:30 Respiratory Rate 16 03/07/23 16:30 Blood Pressure 162/72 H 03/07/23 16:30 Pulse Oximetry 99 03/07/23 16:30 Oxygen Delivery Method Room Air 03/07/23 16:30 Course Orders Ordered: ED Orders 03/07/23 16:55 EKG-12 Lead Stat 03/07/23 17:36 Complete Blood Count AUTO DIFF Stat Comprehensive Metabolic Panel Stat Lipase Stat Urine Microscopic Stat Discontinued Medications Ondansetron HCl (Ondansetron 4 Mg Odt) 4 mg PO NOW PRN PRN Reason: Nausea And Vomiting Ondansetron HCl (Ondansetron 4 Mg/2 Ml Inj) 4 mg IV NOW PRN PRN Reason: Nausea And Vomiting Vital Signs Vital signs: Vital Signs - 8 hr 03/07/23 17:27 03/07/23 17:28 03/07/23 17:28 Pulse Rate 78 Blood Pressure 167/74 H Pulse Oximetry 99 99 03/07/23 17:30 03/07/23 18:52 03/07/23 18:52 Pulse Rate 78 59 L Blood Pressure 146/64 H Pulse Oximetry 100 100 03/07/23 19:00 Pulse Rate 60 Blood Pressure Pulse Oximetry 100 MDM - Abdominal Pain Lab Data 03/07/23 17:36 03/07/23 17:36 Labs: Lab Results 03/07/23 Range/Units 17:36 WBC 9.8 (4.5-11.0) X10^3/uL RBC 3.90 L (4.0-5.2) X10^6/uL Hgb 11.7 L (12.0-16.0) g/dL Hct 34.4 L (36-46) % MCV 88.3 (80-100) fL MCH 30.1 (26-34) PG MCHC 34.1 (30-36) % RDW 13.9 (11.6-14.8) % Plt Count 226 (150-400) X10^3/uL Neut % (Auto) 76.1 H (50-75) % Lymph % (Auto) 16.7 L (25-40) % [place]ander % (Auto) 5.7 (3-14) % Eos % (Auto) 0.5 L (2-4) % Baso % (Auto) 1.0 (0-2) % Neut # (Auto) 7500 H (0887-9680) /uL Lymph # (Auto) 1600 (5799-0813) /uL Lander # (Auto) 600 (0-900) /uL Eos # (Auto) 0 (0-450) /uL Baso # (Auto) 100 (0-100) /uL Sodium 138 (137-145) mmol/L Potassium 4.2 (3.4-5.1) mmol/L Chloride 104 (98-107) mmol/L Carbon Dioxide 24 (22-32) mmol/L BUN 28 H (7-17) mg/dL Creatinine 1.17 H (0.52-1.04) mg/dL Estimated GFR 48 L (>60) mL/min BUN/Creatinine Ratio 23.9 H (6-22) Glucose 97 (80-110) mg/dL Calcium 10.1 (8.4-10.2) mg/dL Total Bilirubin 0.6 (0.2-1.3) mg/dL AST 28 (14-36) IU/L ALT 18 (<35) IU/L Alkaline Phosphatase 47 (38-126) U/L Total Protein 7.6 (6.3-8.2) g/dL Albumin 4.4 (3.5-5.0) g/dL Globulin 3.2 (1.7-4.1) g/dL Albumin/Globulin Ratio 1.4 (1.0-2.8) Lipase 139 (23-300) U/L Urine RBC None seen (0-5/HPF) Urine WBC None seen (0-5/HPF) Ur Squamous Epith Cells None seen (0-5/HPF) Urine Bacteria None seen (None) Ur Culture Indicated? Cult not indicated Point of care testing: Urine Dip Bedside Urine Glucose Negative Bedside Urine Bilirubin - Negative Bedside Urine Ketone - Negative Urine Specific [place] 1.005 Bedside Urine Occult Blood +/- Bedside Urine pH 5 Bedside Urine Protein - Negative Bedside Urine Urobilinogen - Negative Bedside Urine Nitrite - Negative Bedside Urine Leukocytes - Negative Esterase ECG Data Attestation: I personally reviewed and interpreted this ECG as follows: Prior ECG tracings: available for review Interpretation: Sinus rhythm rate of 61 ND 180 QRS is [address] QTC [address] No acute ST elevation or depression noted. Patient has prior from 01/23/2021 no other acute changes. MDM Narrative Medical decision making narrative: 77-year-old female comes in with complaint of left lower abdominal pain tenderness with history of diverticulitis, appropriate vitals, CBC CMP lipase and urine do not show any other clear changes. Discussed with patient's suspect diverticulitis offered CT imaging for more complete evaluation as patient is 77 and higher risk for complications. This time she defers prefers to started on oral antibiotics and hold off on CT imaging. Plan for Augmentin which she has taken in the past without issue with strict return precautions and plan to return if no improvement in 24-48 hours of antibiotics or worsening symptoms. Discharge Plan Departure Patient Disposition: Home Clinical Impression: Diverticulitis Instructions: DI for Diverticulitis Activity Restrictions/Additional Instructions: I suspect that you have diverticulitis but since you have elected to hold off on CT imaging your symptoms are not improving over the next 48 hours with antibiotics please return for re-evaluation. You may take Tylenol up to a 1000 mg every 6 hours as needed for pain. Take oral antibiotics, take 1 tablet every 12 hours until completed. Please start these tonight. Prescription sent to [facility] in [place] Please return for fevers, new or worsening abdominal back or flank pain, vomiting, new black or bloody stools, rapidly worsening pain or other new or concerning changes. Prescriptions: New amoxicillin-pot clavulanate 875-125 mg tablet 1 tab PO BID Qty: 20 0RF No Action CHOLECALCIFEROL (VITAMIN D3) (MAXIMUM D3) 10,000 units PO Qty: 0 ranitidine HCl 75 MG tablet 75 mg PO BID Qty: 0 [COQ 10] Qty: 0 levothyroxine [Tirosint] 88 MCG capsule 88 mcg PO Qty: 0 atorvastatin [Lipitor] 20 MG tablet 40 mg PO HS Qty: 0 clonazepam 2 MG tablet 2 mg PO Qty: 0 amoxicillin-pot clavulanate [Augmentin] 875-125 mg tablet 1 tab PO BID Qty: 14 0RF Referrals: Hellen Kohler MD [Primary Care Provider] - Stand Alone Forms: Patient Portal/API
[2023-03-07 18:52] VITALS: BP 146/64; PULSE 59; O2SAT 100
[2023-03-07 19:00] VITALS: PULSE 60; O2SAT 100
== END 2023-03-07 19:15 | disposition home or self-care (01) ==
PROVIDERS: Emergency Medicine; Emergency Provider Emergency Medicine; Family Provider Internal Medicine Nephrology; PCP Internal Medicine
DX: K57.92 Diverticulitis of intestine, part unspecified, without perforation or abscess without bleeding (principal); R10.32 Left lower quadrant pain
CPT/HCPCS: 80053; 81003; 81015; 83690; 85025; 93005; 99282; 99284

== ENCOUNTER 2023-12-01 15:37 | Emergency (ER) | payer MEDICARE, OTHER, SELFPAY ==
[2023-12-01 15:41] VITALS: BP 137/65; PULSE 68; RESP 16; TEMP 37.1; O2SAT 98; BMI 20.3
--- NOTE | 2023-12-01 16:36 | PC.NURSE ---
Successful uncomplicated removal of rubber hearing aide piece from pts left ear with alligator forceps. Pt states this piece has been in her ear for approx 24 hours.
--- NOTE | 2023-12-01 17:52 | ED.EAR ---
HPI - Ear Problem General Chief complaint: Ear Stated complaint: Ear Ache Time Seen by Provider: 12/01/23 16:56 History of Present Illness HPI Narrative: 78-year-old female with foreign body sensation left ear canal from hearing aid soft cuff, had pulled out her hearing aide and the soft rubber cuff stayed in the left ear canal. No ear canal drainage. Related Data Home Medications Medication Instructions Recorded Confirmed CHOLECALCIFEROL (VITAMIN D3) 10,000 units PO ##0 12/01/12 02/21/18 (MAXIMUM D3) [COQ 10] ##0 06/16/16 02/21/18 ranitidine HCl 75 mg tablet 75 mg PO BID ##0 06/16/16 02/21/18 atorvastatin 20 mg tablet (Lipitor) 40 mg PO HS ##0 05/31/17 02/21/18 clonazepam 2 mg tablet 2 mg PO ##0 05/31/17 02/21/18 levothyroxine 88 mcg capsule 88 mcg PO ##0 05/31/17 02/21/18 (Tirosint) Previous Rx's Medication Instructions Recorded amoxicillin 875 mg-potassium 1 tab PO BID #14 tabs 07/29/18 clavulanate 125 mg tablet (Augmentin) amoxicillin 875 mg-potassium 1 tab PO BID #20 tabs 03/07/23 clavulanate 125 mg tablet Allergies Allergy/AdvReac Type Severity Reaction Status Date / Time cefaclor Allergy Mild RASH Verified 12/01/23 15:45 tetracycline Allergy Mild RASH Verified 12/01/23 15:45 ciprofloxacin [From CIPRO] Allergy Unknown nerve pain Verified 12/01/23 15:45 levofloxacin AdvReac Intermediate NERVE PAIN Verified 12/01/23 15:45 Review of Systems Review of Systems Narrative: see HPI Patient History Medical History Hyperlipidemia Diverticulitis Chronic kidney disease Surgical History S/P colonoscopy Social History Smoking Status: Never smoker Smoking Status: Never smoker alcohol intake frequency: 0-2 drinks per day Substance Use Type: does not use Exam Narrative Exam Narrative: GENERAL: Well-developed patient, in mild distress. HEAD: Atraumatic. Normocephalic. EYES: Pupils equal round and reactive. Extraocular motions intact. No scleral icterus. No injection or drainage. ENT: Nose without bleeding, purulent drainage. Throat without erythema, tonsillar hypertrophy or exudate. Airway patent. NECK: Trachea midline. Non tender CARDIOVASCULAR: Regular rate and rhythm without murmurs, gallops, or rubs. RESPIRATORY: Clear to auscultation. Breath sounds equal bilaterally. No wheezes, rales, or rhonchi. GASTROINTESTINAL: Abdomen soft, non-tender, nondistended. EXTREMITIES: No edema or joint tenderness. BACK: Nontender without deformity or crepitance. No flank tenderness. NEURO: AOx3. SKIN: No rash or erythema of visible areas Initial Vital Signs Initial Vital Signs: Vital Signs Temperature 98.8 F 12/01/23 15:41 Pulse Rate 68 12/01/23 15:41 Respiratory Rate 16 12/01/23 15:41 Blood Pressure 137/65 12/01/23 15:41 Pulse Oximetry 98 12/01/23 15:41 Oxygen Delivery Method Room Air 12/01/23 15:41 Course Vital Signs Vital signs: Vital Signs - 8 hr 12/01/23 15:41 Temperature 98.8 F Pulse Rate 68 Respiratory Rate 16 Blood Pressure 137/65 Pulse Oximetry 98 Oxygen Delivery Method Room Air Medical Decision Making MDM Narrative Medical decision making narrative: Foreign body hearing aide soft rubber cushion retianed in left ear canal by history, removed by ED nursing with alligator forceps intact, visualized EAC and TM unremarkable. Discharged home Discharge Plan Departure Patient Disposition: Home Clinical Impression: Ear foreign body Activity Restrictions/Additional Instructions: Small portion of left hearing aid cushion was retained within the ear canal, removed with alligator forceps by nursing. On post removal examination of the ear canal looks to be clear, no redness, no narrowing, no discharge. Eardrum seemed to look okay as well. You have a regular appointment scheduled, recheck ear exam at that time, to see if there is any interval development of any infection or any other concerns in that year. Currently they are canal looks clear of any foreign bodies post removal of the cushion device from your left hearing aid Prescriptions: No Action CHOLECALCIFEROL (VITAMIN D3) (MAXIMUM D3) 10,000 units PO Qty: 0 ranitidine HCl 75 MG tablet 75 mg PO BID Qty: 0 [COQ 10] Qty: 0 levothyroxine [Tirosint] 88 MCG capsule 88 mcg PO Qty: 0 atorvastatin [Lipitor] 20 MG tablet 40 mg PO HS Qty: 0 clonazepam 2 MG tablet 2 mg PO Qty: 0 amoxicillin-pot clavulanate 875-125 mg tablet 1 tab PO BID Qty: 20 0RF amoxicillin-pot clavulanate [Augmentin] 875-125 mg tablet 1 tab PO BID Qty: 14 0RF Referrals: Hellen Kohler MD [Primary Care Provider] - Stand Alone Forms: Patient Portal/API
[2023-12-01 18:27] VITALS: BP 133/62; PULSE 62; RESP 19; TEMP 36.8; O2SAT 99
== END 2023-12-01 18:29 | disposition home or self-care (01) ==
PROVIDERS: Emergency Provider Emergency Medicine; Family Provider Internal Medicine Nephrology; PCP Internal Medicine
DX: T16.2XXA Foreign body in left ear, initial encounter (principal)
CPT/HCPCS: 99281; 99283

== ENCOUNTER → 2024-02-23 12:10 | Outpatient (CLI) | payer MEDICARE, OTHER, SELFPAY ==
--- NOTE | 2024-02-23 12:11 | DI.RAD.S_ITS ---
PROCEDURE: XR DEXA AXIAL SKELETON INDICATIONS: AGE RELATED OSTEOPOROSIS COMPARISON: [facility], CR, XR DEXA AXIAL SKELETON, 03/19/2022, 14:38. FINDINGS: Lumbar Spine: Bone mineral density 0.954 g/cm2, T score -0.8, no statistically significant difference in bone mineral density compared to prior DEXA dated March 19, 2022. Left Hip: Bone mineral density 0.766 g/cm2, T score -1.4, dissimilar scan type compared to prior therefore unable to make direct comparison. Left Femoral Neck: Bone mineral density 0.546 g/cm2, T score -2.7, dissimilar scan type compared to prior therefore unable to make direct comparison. Right Hip: Bone mineral density 0.775 g/cm2, T score -1.4, dissimilar scan type compared to prior therefore unable to make direct comparison. Right Femoral Neck: Bone mineral density 0.592 g/cm2, T score -2.3, dissimilar scan type compared to prior therefore unable to make direct comparison. Fracture Risk Calculation (when applicable): 10-year fracture risk of a major osteoporotic fracture of the left hip without prior fracture is 17 percent and of a hip fracture is 6.2 percent. 10-year fracture risk of a major osteoporotic fracture of the right hip without prior fracture is 14 percent and of a hip fracture is 4.5 percent. (T score greater or equal to -1.0 to: NORMAL) (T score from -1.1 to -2.4: OSTEOPENIA) (T score less than or equal to -2.5: OSTEOPOROSIS) IMPRESSION: 1. By WHO criteria, this patient has osteoporosis. No statistically significant difference in bone mineral density of the lumbar spine compared to prior DEXA dated March 19, 2022. The hip and neck comparison to prior is limited due to dissimilar scan type. 2. The 10-year fracture risk of a major osteoporotic fracture of the left hip without prior fracture is 17 percent and of a hip fracture is 6.2 percent. 3. The 10-year fracture risk of a major osteoporotic fracture of the right hip without prior fracture is 14 percent and of a hip fracture is 4.5 percent. Follow-up guidelines as follows: Osteoporosis: Consider a repeat DEXA and Vertebral Fracture Assessment (VFA) exam in 2 years or sooner if medically necessary, to reassess this patient's status. Osteopenia: Consider a repeat DEXA in 2-3 years to reassess this patient's status, or if there is a new clinical indication. Normal: Consider a repeat DEXA in 5 years or sooner, or if there is a new clinical indication. All treatment decisions require clinical judgment and consideration of individual patient factors, including patient preferences, comorbidities, previous drug use, risk factors not captured in the FRAX model (e.g., frailty, falls, vitamin D deficiency, increased bone turnover, interval significant decline in bone density ) and possible under- or over-estimation of fracture risk by FRAX. In addition, the NOF Guide recommends that FDA-approved medical therapies be considered in postmenopausal women and men age >= 50 years with a: * Hip or vertebral (clinical or morphometric) fracture * T-score of <=-2.5 at the spine or hip * Ten-year fracture probability by FRAX of >= 3% for hip fracture or >=20% for major osteoporotic fracture. People with diagnosed cases of osteoporosis or at high risk for fracture should have regular bone mineral density tests. For patients eligible for Medicare, routine testing is allowed once every 2 years. The testing frequency can be increased to one year for patients who have rapidly progressing disease, those who are receiving or discontinuing medical therapy to restore bone mass, or have additional risk factors. Dictated by: Lachelle Garcia M.D. on 02/24/2024 at 13:14 Approved by: Lachelle Garcia M.D. on 02/24/2024 at 13:30
== END ==
PROVIDERS: Family Provider Internal Medicine Nephrology; PCP Internal Medicine; Referring Provider Internal Medicine; Visit Provider Internal Medicine
DX: M81.0 Age-related osteoporosis without current pathological fracture (principal)
CPT/HCPCS: 77080

== ENCOUNTER 2025-04-12 15:53 | Emergency (ER) | payer MEDICARE, OTHER, SELFPAY ==
[2025-04-12 16:21] VITALS: BP 135/63; PULSE 75; RESP 17; TEMP 36.8; O2SAT 99; BMI 21.0
--- NOTE | 2025-04-12 16:25 | EKG_ITS ---
[address] [address] Test Date: 2025-04-12 Pat Name: Tracy Villalobos Department: [facility] Room: Gender: Female Radio Electronics Technician: CLIFFORD : 1945 Requested By: Order Number: [id number] Reading MD: Ricky Nickerson MD Measurements Intervals [place] Rate: 68 P: 76 TN: 170 QRS: -30 QRSD: 78 T: 63 QT: 378 QTc: 401 Interpretive Statements Normal sinus rhythm with sinus arrhythmia Left axis deviation Inferior infarct , age undetermined Anteroseptal infarct , age undetermined Electronically Signed On 04-12-2025 16:42:49 PST by Ricky Nickerson MD
[2025-04-12 16:47] LABS: Add Manual Diff / Slide Review NO; Hematocrit 34.8 % (36-46); Hemoglobin 11.8 g/dL (12.0-16.0); Lymphocytes Absolute Auto 1800 /uL (1100-4500); Mean Corpuscular HGB Conc 33.8 % (30-36); Mean Corpuscular Hemoglobin 29.8 PG (26-34); Mean Corpuscular Volume 88.2 fL (80-100); Platelet Count 317 X10^3/uL (150-400)
[2025-04-12 16:51] LABS: Alanine Aminotransferase 15 IU/L (<35); Albumin 4.7 g/dL (3.5-5.0); Albumin Globulin Ratio 1.5 (1.0-2.8); Alkaline Phosphatase 62 U/L (38-126); Blood Urea Nitrogen 22 mg/dL (7-17); Calcium 10.0 mg/dL (8.4-10.2); Carbon Dioxide 22 mmol/L (22-32); Chloride 106 mmol/L (98-107); Estimated Glomerular Filt Rate 39 mL/min (>60); Globulin 3.1 g/dL (1.7-4.1); Glucose 104 mg/dL (70-99); HEMOLYSIS < 15 (0-50); Lipase 113 U/L (23-300); Potassium 3.9 mmol/L (3.4-5.1); Sodium 138 mmol/L (137-145); Total Protein 7.8 g/dL (6.3-8.2)
--- NOTE | 2025-04-12 16:56 | DI.CT.S_ITS ---
PROCEDURE: CT ABDOMEN PELVIS W CON INDICATIONS: lower abd pain TECHNIQUE: After the administration of intravenous contrast, axial sections acquired from the lung bases to the pubic symphysis. Coronal and sagittal reformats were performed. For radiation dose reduction, the following was used: automated exposure control, adjustment of mA and/or kV according to patient size. COMPARISON: [facility], CT, ABDOMEN/PELVIS WITH CONTRAST, 06/16/2016, 14:42. FINDINGS: Image quality: Diagnostic. Lower Chest: A small hiatal hernia is incidentally noted. ABDOMEN: Liver: No solid mass. Gallbladder: No radiopaque gallstones or wall thickening. Biliary ducts: No biliary dilation. Pancreas: No ductal dilation. Spleen: Size is within normal limits. Adrenal Glands: No adrenal nodules. Kidneys and Ureters: No hydronephrosis. No solid mass. No complex renal cystic lesion which requires follow up. Bowel and peritoneum: There is significant wall thickening seen involving the distal sigmoid colon and the proximal rectum paired advanced diverticulosis can be seen within this region. There is mild free fluid seen, yet without loculated free fluid. No free air is seen. The more proximal colon is within normal limits. No dilated loops of small bowel are seen. Ventral Wall: No significant ventral hernia. Abdominal Nodes: No retroperitoneal or mesenteric adenopathy by size criteria. Vessels: Aorta and inferior vena cava are normal in size. Atherosclerotic calcification is noted. PELVIS: Pelvic Organs: No adnexal masses are seen on either side. Bladder: No bladder wall thickening, accounting for underdistention. Pelvic Nodes: No enlarged lymph nodes. Miscellaneous: No inguinal hernias are seen. Bones: No aggressive osseous abnormality. There is moderate levoconvex scoliosis. At least moderate lumbar degenerative change can be seen. IMPRESSION: Advanced distal colonic diverticulitis without tim findings of perforation or abscess. When clinically appropriate (following adequate treatment of the patient's current clinical episode) a colonoscopy is recommended for further evaluation for a potential underlying mass (if not already recently done). Additional findings: Small hiatal hernia Levoconvex scoliosis and associated degenerative change Dictated by: Rajan Wheeler M.D. on 04/12/2025 at 17:20 Approved by: Rajan Wheeler M.D. on 04/12/2025 at 17:23
--- NOTE | 2025-04-12 16:56 | ED.ABDPAIN ---
HPI - Abdominal Pain General Chief Complaint: Abdominal Pain Stated Complaint: Sent from Phys; poss bowel blockage Time Seen by Provider: 04/12/25 16:56 Source: patient Mode of arrival: EMS History of Present Illness HPI narrative: 79-year-old female with a past medical history of hyperlipidemia, hypothyroidism, GERD, diverticulitis, comes into the ED from home for evaluation of lower abdominal pain, she states that she has been having some stringy stools but no diarrhea, she states that she was sent in by her primary care doctor for her symptoms. She denies any other symptoms such as headache visual disturbance chest pain shortness breath fever chills or any other GI/ symptoms time. Related Data Home Medications ?Medication ?Instructions ?Recorded ?Confirmed CHOLECALCIFEROL (VITAMIN D3) 10,000 units PO ##0 12/01/12 02/21/18 (MAXIMUM D3) [COQ 10] ##0 06/16/16 02/21/18 ranitidine HCl 75 mg tablet 75 mg PO BID ##0 06/16/16 02/21/18 atorvastatin 20 mg tablet (Lipitor) 40 mg PO HS ##0 05/31/17 02/21/18 clonazepam 2 mg tablet 2 mg PO ##0 05/31/17 02/21/18 fluticasone propionate 50 spray intranasal 12/20/23 12/20/23 mcg/actuation nasal spray,suspension levothyroxine 75 mcg tablet 75 mcg PO DAILY 12/20/23 12/20/23 Previous Rx's ?Medication ?Instructions ?Recorded ciprofloxacin HCl 500 mg tablet 500 mg PO BID 1 week #14 tabs 04/12/25 (Cipro) ciprofloxacin HCl 500 mg tablet 500 mg PO Q12H 1 week #14 tabs 04/12/25 (Cipro) metronidazole 500 mg tablet 500 mg PO BID 7 days #14 tabs 04/12/25 metronidazole 500 mg tablet 500 mg PO Q8H 7 days #21 tabs 04/12/25 Allergies Allergy/AdvReac Type Severity Reaction Status Date / Time cefaclor Allergy Mild RASH Verified 04/12/25 16:21 tetracycline Allergy Mild RASH Verified 04/12/25 16:21 ciprofloxacin (From CIPRO) Allergy Unknown nerve pain Verified 04/12/25 16:21 levofloxacin AdvReac Intermediate NERVE PAIN Verified 04/12/25 16:21 Review of Systems Review of Systems Narrative: General: Denies fever, chills, weight loss HEENT: Denies headache, eye drainage, eye irritation, head trauma, sore throat, voice change Cardiovascular: Denies any chest pain, palpitations, tachycardia Respiratory: Denies any shortness of breath, cough, wheeze, stridor GI/: Positive abdominal pain, denies nausea, vomiting, diarrhea, bright red blood per rectum, melanotic stools, urinary frequency, urinary retention, dysuria, hematuria MSK: Denies any joint pain, muscle pains, swelling Skin: Denies any rashes, lesions, discoloration Neuro: Denies any headache, lightheadedness, dizziness, fainting, weakness Psych: Denies SI/HI Patient History Medical History Hyperlipidemia Diverticulitis Chronic kidney disease Surgical History S/P colonoscopy Social History Smoking Status: Former smoker Smoking Status: Former smoker tobacco type: cigarettes alcohol intake frequency: 0-2 drinks per day Exam Narrative Exam Narrative: General: Cooperative, well-developed, not in acute distress HEENT: Normocephalic, atraumatic, PERRLA, normal sclera, eyelids normal Neck: Active full range of motion, atraumatic Chest: Normal to inspection, negative crepitus, no overlying erythema ecchymosis Respiratory: Normal respiratory effort, not in acute respiratory distress, clear to auscultation bilaterally negative cough, wheeze, tachypnea, rhonchi, rales Cardiology: Regular rate rhythm negative gallop, murmur, rubs GI/: No tenderness to palpation, soft, non rigid, normal to inspection, exam deferred MSK: Full active range of motion in all 4 extremities, atraumatic, no tenderness to palpation of any bony prominences Skin: No rashes or lesions noted Neuro: Alert awake oriented x3, moves all 4 extremities spontaneously, cranial nerves intact, able to answer all questions appropriately follows commands appropriately Psych: Cooperative, negative suicidal or homicidal ideations Initial Vital Signs Initial Vital Signs: Vital Signs Temperature 98.3 F 04/12/25 16:21 Pulse Rate 75 04/12/25 16:21 Respiratory Rate 17 04/12/25 16:21 Blood Pressure 135/63 04/12/25 16:21 Pulse Oximetry 99 04/12/25 16:21 Oxygen Delivery Method Room Air 04/12/25 16:21 Course Orders Ordered: ED Orders 04/12/25 16:25 EKG-12 Lead Stat 04/12/25 16:33 Complete Blood Count AUTO DIFF Stat Comprehensive Metabolic Panel Stat Lactate (Lactic Acid) Stat Lipase Stat MAG [Magnesium] Stat 04/12/25 16:56 CT abdomen pelvis w con Stat Ondansetron HCl (Ondansetron 4 Mg/2 Ml Inj) 4 mg IV NOW PRN PRN Reason: Nausea And Vomiting Ondansetron HCl (Ondansetron 4 Mg Odt) 4 mg PO NOW PRN PRN Reason: Nausea And Vomiting Discontinued Medications Ciprofloxacin (Ciprofloxacin 250 Mg Tablet) 500 mg PO NOW ONE Stop: 04/12/25 18:32 Sodium Chloride (Normal Saline 0.9%) 1,000 mls @ 1,000 mls/hr IV BOLUS ONE Stop: 04/12/25 17:55 Metronidazole (Metronidazole 500 Mg Tablet) 500 mg PO NOW ONE Stop: 04/12/25 18:32 Ondansetron HCl (Ondansetron 4 Mg/2 Ml Inj) 4 mg IV NOW ONE Stop: 04/12/25 16:57 Vital Signs Vital signs: Vital Signs - 8 hr 04/12/25 16:21 Temperature 98.3 F Pulse Rate 75 Respiratory Rate 17 Blood Pressure 135/63 Pulse Oximetry 99 Oxygen Delivery Method Room Air MDM - Abdominal Pain Lab Data 04/12/25 16:33 04/12/25 16:33 Labs: Lab Results 04/12/25 Range/Units 16:33 WBC 12.9 H (4.5-11.0) X10^3/uL RBC 3.94 L (4.0-5.2) X10^6/uL Hgb 11.8 L (12.0-16.0) g/dL Hct 34.8 L (36-46) % MCV 88.2 (80-100) fL MCH 29.8 (26-34) PG MCHC 33.8 (30-36) % RDW 13.5 (11.6-14.8) % Plt Count 317 (150-400) X10^3/uL Neut % (Auto) 79.1 H (50-75) % Lymph % (Auto) 14.2 L (25-40) % [place] % (Auto) 5.0 (3-14) % Eos % (Auto) 0.4 L (2-4) % Baso % (Auto) 1.3 (0-2) % Neut # (Auto) 57301 H (3036-7464) /uL Lymph # (Auto) 1800 (2990-6324) /uL [place] # (Auto) 600 (0-900) /uL Eos # (Auto) 100 (0-450) /uL Baso # (Auto) 200 H (0-100) /uL Sodium 138 (137-145) mmol/L Potassium 3.9 (3.4-5.1) mmol/L Chloride 106 (98-107) mmol/L Carbon Dioxide 22 (22-32) mmol/L BUN 22 H (7-17) mg/dL Creatinine 1.38 H (0.52-1.04) mg/dL Estimated GFR 39 L (>60) mL/min BUN/Creatinine Ratio 15.9 (6-22) Glucose 104 H (70-99) mg/dL Lactate 0.7 (0.7-2.1) mmol/L Calcium 10.0 (8.4-10.2) mg/dL Magnesium 2.0 (1.6-2.3) mg/dL Total Bilirubin 0.5 (0.2-1.3) mg/dL AST 27 (14-36) IU/L ALT 15 (<35) IU/L Alkaline Phosphatase 62 (38-126) U/L Total Protein 7.8 (6.3-8.2) g/dL Albumin 4.7 (3.5-5.0) g/dL Globulin 3.1 (1.7-4.1) g/dL Albumin/Globulin Ratio 1.5 (1.0-2.8) Lipase 113 (23-300) U/L ECG Data Interpretation: EKG interpreted ED physician sinus 68 beats per minute QTC 401, left axis deviation axis, nonspecific ST changes, no STEMI, MDM Narrative Medical decision making narrative: Patient is a 79-year-old female with a past medical history of hyperlipidemia, diverticulitis, comes into the ED from home for evaluation of lower abdominal pain ongoing persistent for the past 3 days, patient was sent in by her primary care doctor to rule out any intra-abdominal issues, patient had lab work imaging urinalysis performed here in the emergency department. To note patient has had tubal ligation and appendectomy previously. On my exam abdomen soft nontender non peritoneal nature, patient with WBC of 12.9, however she is non peritoneal nature, CT scan was consistent with acute diverticulitis without abscess or perforation, the remainder of her lab work was unremarkable, she states that she has tolerated Cipro and Flagyl previously and states this is what she normally takes with her diverticulitis flare ups, patient will be given 1st dose here and instructed follow up with the primary care and GI in outpatient setting, she verbalized understanding of this and agrees to being discharged home with outpatient follow up Discharge Plan Departure Patient Disposition: Home Clinical Impression: Diverticulitis Instructions: DI for Diverticulitis Activity Restrictions/Additional Instructions: Please follow up with your primary care doctor and emergency room technician Please read the discharge instructions sheet carefully and bring all papers to all doctor follow-up visits, as it may contain information that your doctor may want to see. Disease processes change and evolve, if your symptoms worsen or if you develop any new symptoms that are concerning to you please return for evaluation. Your evaluation today does not show any evidence of any life-threatening/serious illnesses requiring admission to the hospital or surgery. Please follow-up with your doctor for re-evaluation in approximately 1 day. Seek immediate medical attention for any worrisome symptoms. *If you do not have a primary care provider please contact the [facility] Resource line at [phone]. They will ask some questions about your medical history and help get you set up with a doctor in the community. Prescriptions: New ciprofloxacin HCl [Cipro] 500 mg tablet 500 mg PO BID 7 Days Qty: 14 0RF metronidazole 500 mg tablet 500 mg PO BID 7 Days Qty: 14 0RF metronidazole 500 mg tablet 500 mg PO Q8H 7 Days Qty: 21 0RF ciprofloxacin HCl [Cipro] 500 mg tablet 500 mg PO Q12H 7 Days Qty: 14 0RF No Action levothyroxine 75 mcg tablet 75 mcg PO DAILY fluticasone propionate 50 mcg/actuation spray,suspension intranasal CHOLECALCIFEROL (VITAMIN D3) (MAXIMUM D3) 10,000 units PO Qty: 0 ranitidine HCl 75 MG tablet 75 mg PO BID Qty: 0 [COQ 10] Qty: 0 atorvastatin [Lipitor] 20 MG tablet 40 mg PO HS Qty: 0 clonazepam 2 MG tablet 2 mg PO Qty: 0 Referrals: Hellen Kohler MD [Primary Care Provider, Internal Medicine] Stand Alone Forms: Patient Portal/API
[2025-04-12 17:08] LABS: Lactate (Lactic Acid) 0.7 mmol/L (0.7-2.1)
[2025-04-12 17:09] LABS: Magnesium 2.0 mg/dL (1.6-2.3)
== END 2025-04-12 18:55 | disposition home or self-care (01) ==
PROVIDERS: Emergency Provider Student in an Organized Health Care Education/Training Program; Family Provider Internal Medicine Nephrology; PCP Internal Medicine
DX: K57.92 Diverticulitis of intestine, part unspecified, without perforation or abscess without bleeding (principal)
CPT/HCPCS: 36415; 74177; 80053; 83605; 83690; 83735; 85025; 93005; 99283; 99284; Q9967